=== PATIENT | male | born 1960 | race Caucasian/White ===

== ENCOUNTER 2017-08-31 10:56 | Inpatient (IN) | payer MEDICARE, MEDICAID ==
[~2017-08-31] VITALS: Ht 175.3 cm; Wt 86.1 kg
[2017-08-31] VITALS (12 sets, daily range): BP systolic 131–146; BP diastolic 78–93; PULSE 108–119; RESP 18–27; TEMP 97.6–98.1; O2SAT 88–100
[~2017-08-31 10:56] MED LIST: BACL10TA PO; D-AMPHETAMINE SALT PO; HYDR-3580 PO; OXYB5TAB8 PO; TERI14TA PO
[2017-08-31] MEDS ORDERED: [UNRECOGNIZED DRUG - REMARK] IV (11:13)
[2017-08-31] MEDS ORDERED: ADDE20 PO (11:13)
[2017-08-31] MEDS ORDERED: PRED10 PO (11:13)
[2017-08-31] MEDS ORDERED: SODIUM CHLORIDE 0.9% FLUSH 10 ML FLUSH IVF PRN (11:45)
--- NOTE | 2017-08-31 11:47 | PD ---
HPI Chief Complaint: Respiratory Symptoms Time Seen by Provider: 11:40 Travel History International Travel<30 days: No Contact w/Intl Traveler<30days: No Traveled to known affect area: No History of Present Illness HPI Patient presents with concerns of an episode of shortness of breath this morning while bending over to put on his socks. Lips and hands were observed to turn blue. Reports elevated blood pressure and tachycardia. Patient was placed on oxygen with resolution of his symptoms. Denies any chest pain urinary or bowel symptoms. Denies any radiation or diaphoresis. History of multiple sclerosis and hyperlipidemia. PFSH Past Medical History Autoimmune Disease: Yes (MS) Heart Rhythm Problems: No Cardiac Catheterization: No Cardiovascular Problems: No High Cholesterol: Yes Congestive Heart Failure: No Diabetes: No Diminished Hearing: No Genitourinary: No Headaches: Yes Kidney Stones: Yes Musculoskeletal: Yes (complication from ms) Neurologic: Yes (MS) Psychiatric: No Reproductive: No Respiratory: No Immunizations Current: Yes Tetanus Vaccination: > 5 Years Influenza Vaccination: Yes Past Surgical History Surgical History: No Previous Surgery Coronary Artery Bypass Graft: No Social History Alcohol Use: No Tobacco Use: No Substance Use: No Allergies-Medications (Allergen,Severity, Reaction): Coded Allergies: No Known Allergies (Verified Allergy, Unknown, 08/31/17) Reported Meds & Prescriptions Reported Meds & Active Scripts Active Reported [Immunosurpression] 1 Unit IV 2 X YEARLY Prednisone 10 Mg Tab 15 Mg PO DAILY Baclofen 10 Mg Tab 10 Mg PO BID Hydrocodone-Acetaminophen 7.5-325 mg Tab 1 Tab PO Q6H PRN Ditropan (Oxybutynin Chloride) 5 Mg Tab 5 Mg PO Q12HR Physical Exam Narrative GENERAL: Well-nourished, well-developed patient. SKIN: Focused skin assessment warm/dry. HEAD: Normocephalic. EYES: No scleral icterus. No injection or drainage. NECK: Supple, trachea midline. No JVD or lymphadenopathy. CARDIOVASCULAR: Regular rate and rhythm without murmurs, gallops, or rubs. Tachycardic rate 112 RESPIRATORY: Decreased breath sounds right lower lobe. No accessory muscle use. GASTROINTESTINAL: Abdomen soft, non-tender, nondistended. MUSCULOSKELETAL: No cyanosis, or edema. BACK: Nontender without obvious deformity. No CVA tenderness. Data Data Last Documented VS Vital Signs Date Time Temp Pulse Resp B/P (MAP) Pulse Ox O2 Delivery O2 Flow Rate FiO2 08/31/17 12:40 112 18 131/89 (103) 96 Nasal Cannula 3.00 08/31/17 11:03 97.6 Orders Orders Complete Blood Count With Diff (08/31/17 11:40) Comprehensive Metabolic Panel (08/31/17 11:40) B-Type Natriuretic Peptide (08/31/17 11:40) D-Dimer (08/31/17 11:40) Ckmb (Isoenzyme) Profile (08/31/17 11:40) Troponin I (08/31/17 11:40) Iv Access Insert/Monitor (08/31/17 11:40) Electrocardiogram (08/31/17 11:40) Ecg Monitoring (08/31/17 11:40) Oximetry (08/31/17 11:40) Oxygen Administration (08/31/17 11:40) Chest, Single Ap (08/31/17 11:40) Ct Pulmonary Angiogram (08/31/17 11:40) Sodium Chloride 0.9% Flush (Ns Flush) (08/31/17 11:45) Iohexol 350 Inj (Omnipaque 350 Inj) (08/31/17 12:40) Prothrombin Time / Inr (Pt) (08/31/17 13:10) Act Partial Throm Time (Ptt) (08/31/17 13:10) Heparin-D5w 25,000 U/250 Ml (Heparin-D5w (08/31/17 13:15) Act Partial Throm Time (Ptt) (08/31/17 13:11) Cbc No Diff, Includes Plts (08/31/17 13:11) Cbc No Diff, Includes Plts (09/03/17 06:00) Act Partial Throm Time (Ptt) (08/31/17 20:11) Occult Blood (Hemoccult) Stool (08/31/17 13:11) Ct Brain W/O Iv Contrast(Rout) (08/31/17 ) Echo 2d Limited (08/31/17 13:11) Us Leg Venous Doppler Bilat (08/31/17 ) Dextroamphet-Ampheta (Adderall) (08/31/17 21:00) Oxybutynin (Ditropan) (08/31/17 21:00) Prednisone (Deltasone) (09/01/17 09:00) Admit To Inpatient (08/31/17 ) Code Status (08/31/17 13:15) Vital Signs (Adult) YESIKA.Q1H (08/31/17 13:15) Activity Bed Rest (08/31/17 13:15) Elevate Head Of Bed (08/31/17 13:15) Neuro Checks . ORDERED (08/31/17 13:15) Intake + Output Q1H (08/31/17 13:15) Bedside Glucose YESIKA.BGM (08/31/17 13:15) Diet Npo (08/31/17 Lunch) Sodium Chlor 0.9% 1000 Ml Inj (Ns 1000 M (08/31/17 13:15) Sodium Chloride 0.9% Flush (Ns Flush) (08/31/17 13:15) Sodium Chloride 0.9% Flush (Ns Flush) (08/31/17 21:00) Acetaminophen (Tylenol) (08/31/17 13:15) Acetamin-Hydrocod 325-5 Mg ([place] 5-325 (08/31/17 13:15) Morphine Inj (Morphine Inj) (08/31/17 13:15) Pantoprazole Inj (Protonix Inj) (09/01/17 09:00) Ondansetron Inj (Zofran Inj) (08/31/17 13:15) Albuterol-Ipratropium Neb (Duoneb Neb) (08/31/17 16:00) Albuterol Neb (Albuterol Neb) (08/31/17 13:15) Complete Blood Count With Diff (09/01/17 04:00) Comprehensive Metabolic Panel (09/01/17 04:00) Troponin I (08/31/17 18:00) Troponin I (09/01/17 00:00) Act Partial Throm Time (Ptt) (09/01/17 04:00) Prothrombin Time / Inr (Pt) (09/01/17 04:00) Magnesium (Mg) (09/01/17 04:00) Phosphorus (Po4) (09/01/17 04:00) Lactic Acid (09/01/17 04:00) Electrocardiogram (08/31/17 ) Pt Request For Service (08/31/17 13:15) Refractory Manager / Telemetry YESIKA.Q8H (08/31/17 13:15) ^ Initiate Protocol (08/31/17 13:15) Instruction (08/31/17 13:15) [facility] [place] (08/31/17 13:15) Chlorhexidine 2% Cloth (Chlorhexidine 2% (09/01/17 04:00) Chlorhexidine 2% Cloth (Chlorhexidine 2% (08/31/17 13:15) Mrsa Pcr Surveillance (08/31/17 13:15) Docusate Sodium-Senna (Cassandra-Colace) (08/31/17 21:00) Magnesium Hydroxide Liq (Milk Of Magnesi (08/31/17 13:15) Sennosides (Senokot) (08/31/17 13:15) Bisacodyl Supp (Dulcolax Supp) (08/31/17 13:15) Lactulose Liq (Lactulose Liq) (08/31/17 13:15) Inpatient Certification (08/31/17 ) Admit Order (Ed Use Only) (08/31/17 ) Vital Signs (Adult) Q4H (08/31/17 13:17) Labs Laboratory Tests Test 08/31/17 12:00 White Blood Count 11.3 TH/MM3 Red Blood Count 4.81 MIL/MM3 Hemoglobin 14.6 GM/DL Hematocrit 43.7 % Mean Corpuscular Volume 90.8 FL Mean Corpuscular Hemoglobin 30.3 PG Mean Corpuscular Hemoglobin Concent 33.3 % Red Cell Distribution Width 13.1 % Platelet Count 222 TH/MM3 Mean Platelet Volume 9.1 FL Neutrophils (%) (Auto) 82.1 % Lymphocytes (%) (Auto) 10.0 % Monocytes (%) (Auto) 6.4 % Eosinophils (%) (Auto) 1.1 % Basophils (%) (Auto) 0.4 % Neutrophils # (Auto) 9.4 TH/MM3 Lymphocytes # (Auto) 1.1 TH/MM3 Monocytes # (Auto) 0.7 TH/MM3 Eosinophils # (Auto) 0.1 TH/MM3 Basophils # (Auto) 0.0 TH/MM3 CBC Comment DIFF FINAL Differential Comment D-Dimer Quantitative (PE/DVT) 5.81 MG/L FEU Blood Urea Nitrogen 17 MG/DL Creatinine 1.10 MG/DL Random Glucose 90 MG/DL Total Protein 6.9 GM/DL Albumin 3.7 GM/DL Calcium Level 9.0 MG/DL Alkaline Phosphatase 59 U/L Aspartate Amino Transf (AST/SGOT) 20 U/L Alanine Aminotransferase (ALT/SGPT) 45 U/L Total Bilirubin 0.5 MG/DL Sodium Level 142 MEQ/L Potassium Level 3.8 MEQ/L Chloride Level 105 MEQ/L Carbon Dioxide Level 27.5 MEQ/L Anion Gap 10 MEQ/L Estimat Glomerular Filtration Rate 69 ML/MIN Total Creatine Kinase 41 U/L Troponin I 0.76 NG/ML B-Type Natriuretic Peptide 9 PG/ML MDM Medical Decision Making Medical Screen Exam Complete: Yes Emergency Medical Condition: Yes Differential Diagnosis ACS, pulmonary embolism, pneumonia, aspiration Narrative Course Assessment and plan discussed with patient and and friend at bedside. EKG reveals a sinus tachycardia. Cardiac enzymes elevated. Last 72 hours Impressions Chest X-Ray 08/31/17 1140 Signed Impressions: Service Date/Time: Thursday, August 31, 2017 12:45 - CONCLUSION: Mild interstitial prominence identified. Raghavendra Hughes MD CT Angiography 08/31/17 1140 Signed Impressions: Service Date/Time: Thursday, August 31, 2017 12:23 - CONCLUSION: Large bilateral pulmonary emboli including saddle embolus. Vance Nunez MD Physician Communication Physician Communication Spoke with Dr. Reynolds who is in agreement will transport to the [facility] for admission to ICU. No intervention at this time. Diagnosis Primary Impression: Pulmonary embolus Qualified Codes: I26.92 - Saddle embolus of pulmonary artery without acute cor pulmonale Admitting Information Admitting Physician Requests: Admit Adama Angel MD Aug 31, 2017 11:47
[2017-08-31 12:13] LABS: AUTOMATED NEUTROPHIL # 9.4 TH/MM3 (1.8-7.7); BASOPHIL % 0.4 % (0.0-2.0); EOSINOPHIL # 0.1 TH/MM3 (0-0.4); EOSINOPHIL % 1.1 % (0.0-4.0); HEMATOCRIT 43.7 % (39.0-51.0); HEMO FLAGS DIFF FINAL; LYMPHOCYTE # 1.1 TH/MM3 (1.0-4.8); MEAN CELL VOLUME 90.8 FL (80.0-100.0); MEAN CORPUSCULAR HEMOGLOBIN 30.3 PG (27.0-34.0); MEAN CORPUSCULAR HGB CONC 33.3 % (32.0-36.0); MONO % 6.4 % (0.0-8.0); NEUT % 82.1 % (16.0-70.0); PLATELET COUNT 222 TH/MM3 (150-450); RED BLOOD COUNT 4.81 MIL/MM3 (4.50-5.90); RED CELL DISTRIBUTION WIDTH 13.1 % (11.6-17.2); WHITE BLOOD COUNT 11.3 TH/MM3 (4.0-11.0)
[2017-08-31 12:20] LABS: CHLORIDE 105 MEQ/L (98-107); POTASSIUM 3.8 MEQ/L (3.5-5.1); SODIUM (NA) 142 MEQ/L (136-145)
[2017-08-31 12:23] LABS: ANION GAP 10 MEQ/L (5-15); BICARBONATE 27.5 MEQ/L (21.0-32.0); BLOOD UREA NITROGEN 17 MG/DL (7-18)
[2017-08-31 12:27] LABS: ALT (GPT) 45 U/L (12-78); AST (GOT) 20 U/L (15-37); GLOMERULAR FILTRATION RATE 69 ML/MIN (>89)
[2017-08-31 12:28] LABS: TOTAL BILIRUBIN ADULT 0.5 MG/DL (0.2-1.0)
[2017-08-31 12:29] LABS: ALKALINE PHOSPHATASE 59 U/L (45-117)
[2017-08-31 12:32] LABS: CREATINE KINASE 41 U/L (39-308)
[2017-08-31] MEDS ORDERED: IOHEXOL 350 MG/ML 10 ML VIAL (for RAD DIAG) IVCONTRAST ONE (12:40)
--- NOTE | 2017-08-31 13:01 | RADRPT ---
EXAM DATE/TIME: 08/31/2017 12:23 [facility] COMPARISON: No previous studies available for comparison. INDICATIONS : Sudden onset of shortness of breath. IV CONTRAST: 100 cc Omnipaque 350 (iohexol) IV RADIATION DOSE: 18.54 CTDIvol (mGy) MEDICAL HISTORY : Multple sclerosis. Hypercholesterolemia. Renal calculi.Hyperlipedema SURGICAL HISTORY : None. ENCOUNTER: Initial ACUITY: 1 day PAIN SCALE: 0/10 LOCATION: Bilateral chest TECHNIQUE: Volumetric scanning of the chest was performed using a pulmonary embolism protocol MIP images were re constructed. Using automated exposure control and adjustment of the mA and/or kV according to patien t size, radiation dose was kept as low as reasonably achievable to obtain optimal diagnostic quality images. DICOM format image data is available electronically for review and comparison. Follow-up recommendations for detected pulmonary nodules are based at a minimum on nodule size and pa tient risk factors according to Fleischner Society Guidelines. FINDINGS: PULMONARY ARTERIES: There is a large filling defect extending across the pulmonary artery bifurcation into the right and left pulmonary arteries. Large filling defects extend into all of the right lower lobe branches and m ultiple left lower lobe branches as well as multiple bilateral upper lobe branches. LUNGS: Groundglass opacity likely resulting atelectasis in the lower lungs bilaterally. PLEURAE: There is no pleural thickening or pleural effusion. MEDIASTINUM: There is good visualization of the great vessels of the middle mediastinum. No evidence of mediastin al or hilar adenopathy/mass. MUSCULOSKELETAL: Within normal limits for patient age. MISCELLANEOUS: The visualized upper abdominal organs demonstrate no acute abnormality. CONCLUSION: Large bilateral pulmonary emboli including saddle embolus. Vance Nunez MD on August 31, 2017 at 12:54 Board Certified Radiologist. This report was verified electronically.
--- NOTE | 2017-08-31 13:03 | RADRPT ---
EXAM DATE/TIME: 08/31/2017 12:45 [facility] COMPARISON: CHEST SINGLE AP, September 04, 2016, 1:34. INDICATIONS : Short of breath MEDICAL HISTORY : None. SURGICAL HISTORY : None. ENCOUNTER: Subsequent ACUITY: 1 day PAIN SCORE: 0/10 LOCATION: Bilateral chest FINDINGS: Mild interstitial prominence. Cardiomegaly. No effusions or consolidation. Osseous structures are int act. CONCLUSION: Mild interstitial prominence identified. Raghavendra Hughes MD on August 31, 2017 at 13:01 Board Certified Radiologist. This report was verified electronically.
[2017-08-31] MEDS ORDERED: LACTULOSE SYRUP 20 GM/30 ML CUP PO PRN (13:15)
[2017-08-31] MEDS ORDERED: ONDANSETRON HCL 4 MG/2 ML VIAL IV PUSH PRN (13:15)
[2017-08-31] MEDS ORDERED: RESP: ALBUTEROL 2.5 MG/3 ML NEB (PRN) INH (13:15)
[2017-08-31] MEDS ORDERED: MAGNESIUM HYDROXIDE SUSP 30 ML CUP PO PRN (13:15)
[2017-08-31] MEDS ORDERED: SODIUM CHLORIDE 0.9% FLUSH 10 ML FLUSH IV FLUSH PRN ×2 (13:15→15:30)
[2017-08-31] MEDS ORDERED: BISACODYL 10 MG SUPP RECTAL PRN (13:15)
[2017-08-31] MEDS ORDERED: ACETAMINOPHEN/HYDROcodone 325 MG/5 MG TAB PO PRN (13:15)
[2017-08-31] MEDS ORDERED: SENNOSIDES 8.6 MG TAB PO PRN (13:15)
[2017-08-31] MEDS ORDERED: CHLORHEXIDINE GLUCONATE 2 % 1 PACK (2 CLOTHS) TOP PRN (13:15)
[2017-08-31] MEDS ORDERED: MISCELLANEOUS NURSING INFORMATION XX SCH (13:15)
[2017-08-31] MEDS: SODIUM CHLOR 0.9% 1000 ML INJ 1,000 ML IV SCH ×2 (13:40→16:40)
[2017-08-31 14:14] LABS: APTT (PATIENT) 25.3 SEC (24.3-30.1); INTERNATIONAL NORMALIZED RATIO 0.9 RATIO; PROTHROMBIN TIME - PATIENT 10.4 SEC (9.8-11.6)
--- NOTE | 2017-08-31 15:13 | PD.PROCEDR ---
Central Line Procedure REASON FOR PROCEDURE Central venous access PROCEDURE PERFORMED Central line placement: Right internal jugular vein CONSENT Informed consent for procedure was obtained. The risks and benefits of the procedure were discussed to include but limited to bleeding, clot formation, infection, and even . ANESTHESIA Local injection of 1% Lidocaine DESCRIPTION OF THE PROCEDURE The patient was placed in supine, mild Trendelenburg position. The area was exposed and cleansed with ChloraPrep, times two. Large sterile drape was used to cover the patient, with the site exposed, under sterile conditions including cap, face mask, sterile gown, and sterile gloves. On single attempt, the introducer needle was inserted with negative pressure in syringe and venous flash was obtained. The guide wire was then advanced without any restriction and the needle was removed. The dilator was used without any complications. Using Seldinger technique the triple-lumen antibiotic coated catheter was advanced over the guide wire to a depth of 15 centimeters. The guide wire was removed. All ports were aspirated with dark venous blood return and flushed easily with sterile saline. All ports were capped. Antibiotic disc was placed around central line at puncture site. The central line was secured to the skin with two interrupted 2.0 silk sutures. The area was bandaged with sterile see- through central line bandage. RADIOLOGICAL DATA Ultrasound guidance was used to locate right internal jugular vein. Doppler/ color flow was used to confirm venous flow. COMPLICATIONS: No apparent complications ESTIMATED BLOOD LOSS: Less than 1 cc. Steven Reynolds MD Aug 31, 2017 15:13
--- NOTE | 2017-08-31 15:14 | HHI.HP ---
[facility] Service Critical Care Medicine Primary Care Physician Non-Staff Admission Diagnosis Pulmonary Embolus Diagnosis: (1) Elevated troponin Diagnosis: Principal (2) Leukocytosis Diagnosis: Secondary (3) Chronic narcotic use Diagnosis: Secondary (4) Bladder spasm Diagnosis: Secondary (5) On prednisone therapy (6) Dyslipidemia Diagnosis: Principal (7) Multiple sclerosis Diagnosis: Principal (8) Pulmonary embolus Diagnosis: Principal (9) Chest pain Diagnosis: Secondary (10) ADHD Diagnosis: Secondary Chief Complaint: Shortness of breath Travel History International Travel<30 Days: No Contact w/Intl Traveler <30 Da: No Traveled to Known Affected Are: No History of Present Illness This is a 57-year-old male. Date of admission 08/31/2017. Past medical history includes MS, chronic prednisone use, bladder incontinence and chronic narcotic use.Mr. Thibodeaux presents with the [facility] episode of shortness of breath this morning while bending over to put on his socks. He is noted to have peripheral edema including his oromucosa and hands. Reports elevated blood pressure and tachycardia. Patient was placed on oxygen by neighbor with resolution of his symptoms. Denies any chest pain urinary or bowel symptoms. Denies any radiation or diaphoresis. Patient had a CT pulmonary angiogram at [place] revealed thrombus across the pulmonary bifurcation involving the bilateral upper and lower lobes of the lung. Heparin drip as well as written to be initiated at [place] but not started. Head CT was not done. Patient was transported to [facility] for further evaluation treatment. A central line has been placed and we'll start on alteplase at 2 mg an hour 6 hours per protocol. Started by heparin drip at 1 hour post conclusion Review of Systems Constitutional: COMPLAINS OF: Fatigue, DENIES: Fever, Weight gain, Weight loss Endocrine: DENIES: Polydipsia, Polyuria Eyes: DENIES: Blurred vision Ears, nose, mouth, throat: DENIES: Tinnitus Respiratory: COMPLAINS OF: Shortness of breath, DENIES: Apneas, Cough Cardiovascular: DENIES: Chest pain Gastrointestinal: DENIES: Abdominal pain Genitourinary: DENIES: Urgency Musculoskeletal: DENIES: Joint pain Integumentary: DENIES: Abnormal pigmentation Hematologic/lymphatic: DENIES: Bruising Immunologic/allergic: DENIES: Eczema Neurologic: DENIES: Abnormal gait Psychiatric: DENIES: Anxiety, Confusion Past Family Social History Allergies: Coded Allergies: No Known Allergies (Verified Allergy, Unknown, 08/31/17) Past Medical History MS Dyslipidemia Bladder overflow Chronic prednisone use Chronic narcotic use Past Surgical History Patient has had no surgeries Reported Medications [Immunosurpression] 1 Unit IV 2 X YEARLY Prednisone 10 Mg Tab 15 Mg PO DAILY Baclofen 10 Mg Tab 10 Mg PO BID Hydrocodone-Acetaminophen 7.5-325 mg Tab 1 Tab PO Q6H PRN Ditropan (Oxybutynin Chloride) 5 Mg Tab 5 Mg PO Q12HR Active Ordered Medications Prednisone 15 mill grams by mouth daily Baclofen 10 mg by mouth twice a day Oxybutynin 5 mill grams by mouth twice a day [place] 7.5/325 1 tablet every 4 hours. Pain Family History Patient is adopted Social History Denies any tobacco alcohol or IV drug use Physical Exam Vital Signs Vital Signs Date Time Temp Pulse Resp B/P (MAP) Pulse Ox O2 Delivery O2 Flow Rate FiO2 08/31/17 13:51 08/31/17 13:45 112 18 143/93 (110) 97 Nasal Cannula 3.00 08/31/17 12:40 112 18 131/89 (103) 96 Nasal Cannula 3.00 08/31/17 11:45 95 Nasal Cannula 3.00 08/31/17 11:45 95 Nasal Cannula 3.00 08/31/17 11:06 (108) 08/31/17 11:03 97.6 119 18 140/92 (108) 88 Room Air 08/31/17 11:03 95 Nasal Cannula 3.00 Physical Exam GENERAL: This is a 57-year-old male, resting in bed on nasal cannula SKIN: Warm and dry. Well perfused HEAD: Atraumatic. Normocephalic. EYES: Pupils equal and round. No scleral icterus. No injection or drainage. ENT: No nasal bleeding or discharge. Mucous membranes pink and moist. NECK: Trachea midline. No JVD. CARDIOVASCULAR: Tachycardia, RR. S1, S2. No S4. Without murmur RESPIRATORY: Really no significant accessory muscle use. Essentially clear.. Breath sounds equal bilaterally. GASTROINTESTINAL: Abdomen soft, non-tender, nondistended. Active bowel sounds appreciated. MUSCULOSKELETAL: Extremities with trace bilateral lower extremity edema. No obvious deformities. NEUROLOGICAL: Awake and alert. No obvious cranial nerve deficits. Motor grossly within normal limits. Five out of 5 muscle strength in the arms and legs. Normal speech. Laboratory Laboratory Tests Test 08/31/17 12:00 White Blood Count 11.3 Red Blood Count 4.81 Hemoglobin 14.6 Hematocrit 43.7 Mean Corpuscular Volume 90.8 Mean Corpuscular Hemoglobin 30.3 Mean Corpuscular Hemoglobin Concent 33.3 Red Cell Distribution Width 13.1 Platelet Count 222 Mean Platelet Volume 9.1 Neutrophils (%) (Auto) 82.1 Lymphocytes (%) (Auto) 10.0 Monocytes (%) (Auto) 6.4 Eosinophils (%) (Auto) 1.1 Basophils (%) (Auto) 0.4 Neutrophils # (Auto) 9.4 Lymphocytes # (Auto) 1.1 Monocytes # (Auto) 0.7 Eosinophils # (Auto) 0.1 Basophils # (Auto) 0.0 CBC Comment DIFF FINAL Differential Comment Prothrombin Time 10.4 Prothromb Time International Ratio 0.9 Activated Partial Thromboplast Time 25.3 D-Dimer Quantitative (PE/DVT) 5.81 Blood Urea Nitrogen 17 Creatinine 1.10 Random Glucose 90 Total Protein 6.9 Albumin 3.7 Calcium Level 9.0 Alkaline Phosphatase 59 Aspartate Amino Transf (AST/SGOT) 20 Alanine Aminotransferase (ALT/SGPT) 45 Total Bilirubin 0.5 Sodium Level 142 Potassium Level 3.8 Chloride Level 105 Carbon Dioxide Level 27.5 Anion Gap 10 Estimat Glomerular Filtration Rate 69 Total Creatine Kinase 41 Troponin I 0.76 B-Type Natriuretic Peptide 9 Result Diagram: 08/31/17 1200 08/31/17 1200 Imaging Last Impressions Chest X-Ray 08/31/17 1140 Signed Impressions: Service Date/Time: Thursday, August 31, 2017 12:45 - CONCLUSION: Mild interstitial prominence identified. Raghavendra Hughes MD CT Angiography 08/31/17 1140 Signed Impressions: Service Date/Time: Thursday, August 31, 2017 12:23 - CONCLUSION: Large bilateral pulmonary emboli including saddle embolus. Vance Nunez MD Caprini VTE Risk Assessment Caprini VTE Risk Assessment: Mod/High Risk (score >= 2) VTE Pharm Contraindication: Caprini Risk Assessment Model Point Value = 1 Point Value = 2 Point Value = 3 Point Value = 5 Age 41-60 Minor surgery BMI > 25 kg/m2 Swollen legs Varicose veins or History of unexplained or recurrent spontaneous Oral contraceptives or hormone replacement Sepsis (< 1 month) Serious lung disease, including pneumonia (< 1 month) Abnormal pulmonary function Acute myocardial infarction Congestive heart failure (< 1 month) History of inflammatory bowel disease Medical patient at bed rest Age 61-74 Arthroscopic surgery Major open surgery (> 45 min) Laparoscopic surgery (> 45 min) Malignancy Confined to bed (> 72 hours) Immobilizing plaster cast Central venous access Age >= 75 History of VTE Family history of VTE Factor V Leiden Prothrombin [id number] Lupus anticoagulant Anticardiolipin antibodies Elevated serum homocysteine Heparin-induced thrombocytopenia Other congenital or acquired thrombophilia Stroke (< 1 month) Elective arthroplasty Hip, pelvis, or leg fracture Acute spinal cord injury (< 1 month) Prophylaxis Regimen Total Risk Factor Score Risk Level Prophylaxis Regimen 0-1 Low Early ambulation 2 Moderate Order ONE of the following: *Sequential Compression Device (SCD) *Heparin 5000 units SQ BID 3-4 Higher Order ONE of the following medications: *Heparin 5000 units SQ TID *Enoxaparin/Lovenox 40 mg SQ daily (WT < 150 kg, CrCl > 30 mL/min) *Enoxaparin/Lovenox 30 mg SQ daily (WT < 150 kg, CrCl > 10-29 mL/min) *Enoxaparin/Lovenox 30 mg SQ BID (WT < 150 kg, CrCl > 30 mL/min) AND/OR *Sequential Compression Device (SCD) 5 or more Highest Order ONE of the following medications: *Heparin 5000 units SQ TID (Preferred with Epidurals) *Enoxaparin/Lovenox 40 mg SQ daily (WT < 150 kg, CrCl > 30 mL/min) *Enoxaparin/Lovenox 30 mg SQ daily (WT < 150 kg, CrCl > 10-29 mL/min) *Enoxaparin/Lovenox 30 mg SQ BID (WT < 150 kg, CrCl > 30 mL/min) AND *Sequential Compression Device (SCD) Assessment and Plan Assessment and Plan Neuro/Psych: Chronic narcotic use MS ADHD Continue baclofen 10 mg by mouth twice a day/muscle relaxants Currently on [place] 5/325 one tablet every 4 hours. Pain 1-5. Morphine sulfate 2 mg IV every 2 hours. Pain 6-10 Patient is on [place] 7.5/325 one tablet every 4 hours when necessary pain at home Continue prednisone 15 mg by mouth daily Immunosuppressant unknown type on hold Continue Adderall 20 mg BID CV: Sinus tachycardia Elevated troponin - likely secondary to pulmonary embolism strain Currently normal saline at 84 cc an hour Currently not requiring vasopressors and/or antihypertensives 2-D echocardiogram ordered Echo troponins every 6 hours 3 total Resp: Acute massive pulmonary embolism CT pulmonary angiogram revealed large thrombus across the pulmonary bifurcation involving right main lung, bilateral right upper middle lobe and left upper and lower lobes Nasal cannula to maintain saturations greater than equal to 90% Incentive spirometry while awake Alteplase infusion see below at 10 mg an hour 6 hours with heparin drip at 500 units an hour. Initiated heparin drip for PE protocol 1 hour post alteplase infusion GI: Patient is currently nothing by mouth Pantoprazole for GI prophylaxis Docusate sodium/senna for bowel regimen : Bladder spasm Continue oxybutynin 5 mg every 12 hours No indication for Kim catheter Endo: Chronic prednisone use Sliding-scale insulin with Accu-Cheks to maintain euglycemia if indicated Renal: Creatinine currently within normal limits Monitor urine output Accurate I's and O's Heme: Leukocytosis Renal Doppler ultrasound bilateral lower extremities. Patient is relatively immobile to MS ID: Monitor for infection MSK: PT evaluate and treat FEN: Replace electrolytes as clinically indicated Access - Right IJ CVL Prophylaxis - GI - pantoprazole - DVT - SCDs/currently on alteplase/heparin drip Critical Care: The total critical care time was 35 minutes. Time to perform other separately billable procedures was not included in the critical care time. Code Status Full code Discussed Condition With Patient. Dr. Boaz Ortega, IR. Dr. Angel. The ED physician. Care plan discussed and all questions answered. Problem Qualifiers (1) Leukocytosis: Qualified Codes: D72.829 - Elevated white blood cell count, unspecified (2) Pulmonary embolus: Qualified Codes: I26.92 - Saddle embolus of pulmonary artery without acute cor pulmonale (3) Chest pain: Qualified Codes: R07.9 - Chest pain, unspecified (4) ADHD: Qualified Codes: F90.9 - Attention-deficit hyperactivity disorder, unspecified type Steven Reynolds MD Aug 31, 2017 15:13
[2017-08-31] MEDS: RESP: ALBUTEROL 2.5 MG/IPRATROPIUM 0.5 MG NEB (SCH) INH ×2 (15:48→21:29)
[2017-08-31] MEDS: Intra-Venous SODIUM CHLORIDE 0.9% IV LINE 1000 ML IV SCH (16:00)
[2017-08-31] MEDS ORDERED: Intra-Venous HEPARIN 1,000 UNITS/500 ML NS (PRN) IV ×2 (16:00)
--- NOTE | 2017-08-31 16:04 | EKG ---
Date Performed: 08/31/2017 Time Performed: 11:48:57 PTAGE: 57 years EKG: SINUS TACHYCARDIA NONSPECIFIC ST & T-WAVE ABNORMALITY Compared to prior tracing no signific ant change ABNORMAL RHYTHM ECG PREVIOUS TRACING : 09/04/2016 08.31 DOCTOR: Elliot Chavis Interpretating Date/Time 08/31/2017 16:03:17
--- NOTE | 2017-08-31 16:11 | RADRPT ---
EXAM DATE/TIME: 08/31/2017 15:50 [facility] COMPARISON: CHEST SINGLE AP, August 31, 2017, 12:45. INDICATIONS : Post central line placement. MEDICAL HISTORY : Multple sclerosis. Hypercholesterolemia. Renal calculi.Hyperlipedema SURGICAL HISTORY : None. ENCOUNTER: Subsequent ACUITY: 1 day PAIN SCORE: Non-responsive. LOCATION: Bilateral chest FINDINGS: Right IJ central venous catheter has been placed, tip in the superior vena cava. There is no pneumoth orax. No infiltrate, effusion or pneumothorax. Heart size stable, within normal limits. CONCLUSION: New right internal jugular central venous catheter with tip in the superior vena cava. No acute cardi opulmonary disease or acute complication. Lamberto Martinez MD on August 31, 2017 at 16:08 Board Certified Radiologist. This report was verified electronically.
--- NOTE | 2017-08-31 16:17 | RADRPT ---
EXAM DATE/TIME: 08/31/2017 15:47 [facility] COMPARISON: No previous studies available for comparison. INDICATIONS : Cephalgia; pre TPA for pulmonary emboli. RADIATION DOSE: 36.35 CTDIvol (mGy) MEDICAL HISTORY : Multple sclerosis. SURGICAL HISTORY : None. ENCOUNTER: Initial ACUITY: 1 day PAIN SCALE: 3/10 LOCATION: Bilateral chest TECHNIQUE: Multiple contiguous axial images were obtained of the head. Using automated exposure control and adj ustment of the mA and/or kV according to patient size, radiation dose was kept as low as reasonably a chievable to obtain optimal diagnostic quality images. DICOM format image data is available electro nically for review and comparison. FINDINGS: CEREBRUM: The ventricles are normal for age. No evidence of midline shift, mass lesion, hemorrhage or acute in farction. No extra-axial fluid collections are seen. POSTERIOR FOSSA: The cerebellum and brainstem are intact. The 4th ventricle is midline. The cerebellopontine angle i s unremarkable. EXTRACRANIAL: The visualized portion of the orbits is intact. SKULL: The calvaria is intact. No evidence of skull fracture. CONCLUSION: No acute disease. Raghavendra Hughes MD on August 31, 2017 at 16:15 Board Certified Radiologist. This report was verified electronically.
[2017-08-31 16:20] LABS: AUTOMATED NEUTROPHIL # 9.9 TH/MM3 (1.8-7.7); BASOPHIL # 0.1 TH/MM3 (0-0.2); BASOPHIL % 0.5 % (0.0-2.0); EOSINOPHIL # 0.2 TH/MM3 (0-0.4); EOSINOPHIL % 1.3 % (0.0-4.0); HEMATOCRIT 41.5 % (39.0-51.0); HEMO FLAGS DIFF FINAL; LYMPH % 9.9 % (9.0-44.0); LYMPHOCYTE # 1.2 TH/MM3 (1.0-4.8); MEAN CELL VOLUME 92.2 FL (80.0-100.0); MEAN CORPUSCULAR HEMOGLOBIN 30.7 PG (27.0-34.0); MEAN CORPUSCULAR HGB CONC 33.3 % (32.0-36.0); MONO % 6.8 % (0.0-8.0); NEUT % 81.5 % (16.0-70.0); PLATELET COUNT 225 TH/MM3 (150-450); RED CELL DISTRIBUTION WIDTH 13.9 % (11.6-17.2); WHITE BLOOD COUNT 12.2 TH/MM3 (4.0-11.0)
[2017-08-31] MEDS ORDERED: LABETALOL HCL 100 MG/20 ML VIAL IV PUSH PRN (16:30)
[2017-08-31 16:32] LABS: APTT (PATIENT) 25.1 SEC (24.3-30.1)
[2017-08-31] MEDS: Intra-Venous ALTEPLASE 10 MG/500 ML NS IV PRN ×4 (16:36→22:20)
[2017-08-31] MEDS: HEPARIN-D5W 25,000 U/250 ML 250 ML IV SCH (16:50)
--- NOTE | 2017-08-31 17:10 | RADRPT ---
EXAM DATE/TIME: 08/31/2017 16:37 [facility] COMPARISON: No previous studies available for comparison. INDICATIONS : Pulmonary embolism. MEDICAL HISTORY : Hypercholesterolemia. Renal calculi. Multiple sclerosis. Hyperlipidemia. SURGICAL HISTORY : None. ENCOUNTER: Initial ACUITY: 1 day PAIN SCORE: 2/10 LOCATION: Bilateral legs. TECHNIQUE: Venous ultrasound of the left and right leg was performed from the inguinal ligament to the proximal calf. Real-time, color Doppler and spectral tracing, compression and augmentation techniques were us ed. FINDINGS: RIGHT LEG: There is normal compressibility of the deep venous system from the inguinal region to the proximal ca lf. No echogenic clot is seen in the lumen of the common femoral, femoral, popliteal, and posterior tibial veins. There is a normal response of the venous system to proximal and distal augmentation an d respiration. LEFT LEG: There is normal compressibility of the deep venous system from the inguinal region to the proximal ca lf. No echogenic clot is seen in the lumen of the common femoral, femoral, popliteal, and posterior tibial veins. There is a normal response of the venous system to proximal and distal augmentation an d respiration. CONCLUSION: No venous thrombosis of either lower extremity. Lamberto Martinez MD on August 31, 2017 at 17:09 Board Certified Radiologist. This report was verified electronically.
[2017-08-31] MEDS: MORPHINE SULFATE 4 MG/ML INJ IV PUSH PRN (19:34)
[2017-08-31] MEDS: SODIUM CHLORIDE 0.9% FLUSH 10 ML FLUSH IV FLUSH SCH (20:30)
[2017-08-31] MEDS: BACLOFEN 10 MG TAB PO SCH (20:30)
[2017-08-31] MEDS: OXYBUTYNIN CHLORIDE 5 MG TAB PO SCH (20:30)
[2017-08-31] MEDS: DEXTROAMPHETAMINE/AMPHETAMINE 20 MG TAB PO SCH (20:30)
[2017-08-31] MEDS: DOCUSATE SODIUM 50 MG/SENNA 8.6 MG TAB PO SCH (20:31)
[2017-08-31 21:00] LABS: AUTOMATED NEUTROPHIL # 10.5 TH/MM3 (1.8-7.7); BASOPHIL # 0.1 TH/MM3 (0-0.2); BASOPHIL % 0.5 % (0.0-2.0); EOSINOPHIL # 0.2 TH/MM3 (0-0.4); EOSINOPHIL % 1.2 % (0.0-4.0); HEMATOCRIT 41.4 % (39.0-51.0); HEMO FLAGS DIFF FINAL; LYMPH % 9.7 % (9.0-44.0); LYMPHOCYTE # 1.2 TH/MM3 (1.0-4.8); MEAN CELL VOLUME 92.6 FL (80.0-100.0); MEAN CORPUSCULAR HEMOGLOBIN 30.4 PG (27.0-34.0); MEAN CORPUSCULAR HGB CONC 32.8 % (32.0-36.0); MONO % 6.5 % (0.0-8.0); NEUT % 82.1 % (16.0-70.0); PLATELET COUNT 216 TH/MM3 (150-450); RED BLOOD COUNT 4.47 MIL/MM3 (4.50-5.90); RED CELL DISTRIBUTION WIDTH 13.8 % (11.6-17.2); WHITE BLOOD COUNT 12.8 TH/MM3 (4.0-11.0)
[2017-08-31 21:12] LABS: APTT (PATIENT) 26.8 SEC (24.3-30.1)
[2017-09-01] VITALS (20 sets, daily range): BP systolic 125–149; BP diastolic 68–93; PULSE 101–109; RESP 12–27; TEMP 98–98.7; O2SAT 96–99
[2017-09-01] MEDS: MORPHINE SULFATE 4 MG/ML INJ IV PUSH PRN ×2 (00:25→21:13)
[2017-09-01] MEDS: HEPARIN-D5W 25,000 U/250 ML 250 ML IV PRN ×2 (00:28→16:30)
[2017-09-01] MEDS: SODIUM CHLOR 0.9% 1000 ML INJ 1,000 ML IV SCH ×2 (03:30→15:45)
[2017-09-01] MEDS: CHLORHEXIDINE GLUCONATE 2 % 1 PACK (2 CLOTHS) TOP SCH (04:00)
[2017-09-01 04:16] LABS: APTT (PATIENT) 52.6 SEC (24.3-30.1)
[2017-09-01 04:20] LABS: AUTOMATED NEUTROPHIL # 9.7 TH/MM3 (1.8-7.7); BASOPHIL # 0.1 TH/MM3 (0-0.2); BASOPHIL % 0.4 % (0.0-2.0); EOSINOPHIL # 0.2 TH/MM3 (0-0.4); EOSINOPHIL % 1.8 % (0.0-4.0); HEMATOCRIT 41.2 % (39.0-51.0); HEMO FLAGS DIFF FINAL; LYMPH % 10.3 % (9.0-44.0); LYMPHOCYTE # 1.3 TH/MM3 (1.0-4.8); MEAN CELL VOLUME 92.3 FL (80.0-100.0); MEAN CORPUSCULAR HEMOGLOBIN 30.9 PG (27.0-34.0); MEAN CORPUSCULAR HGB CONC 33.5 % (32.0-36.0); MONO % 7.5 % (0.0-8.0); PLATELET COUNT 216 TH/MM3 (150-450); RED BLOOD COUNT 4.46 MIL/MM3 (4.50-5.90); WHITE BLOOD COUNT 12.1 TH/MM3 (4.0-11.0)
[2017-09-01] MEDS: RESP: ALBUTEROL 2.5 MG/IPRATROPIUM 0.5 MG NEB (SCH) INH ×4 (04:43→20:25)
[2017-09-01 05:35] LABS: APTT (PATIENT) 61.1 SEC (24.3-30.1)
[2017-09-01 05:42] LABS: ALT (GPT) 39 U/L (12-78); ANION GAP 9 MEQ/L (5-15); AST (GOT) 18 U/L (15-37); BICARBONATE 26.6 MEQ/L (21.0-32.0); BLOOD UREA NITROGEN 12 MG/DL (7-18); CHLORIDE 106 MEQ/L (98-107); GLOMERULAR FILTRATION RATE 84 ML/MIN (>89); MAGNESIUM 2.2 MG/DL (1.5-2.5); POTASSIUM 3.9 MEQ/L (3.5-5.1); SODIUM (NA) 142 MEQ/L (136-145)
[2017-09-01 05:46] LABS: ALKALINE PHOSPHATASE 64 U/L (45-117); TOTAL BILIRUBIN ADULT 0.6 MG/DL (0.2-1.0)
[2017-09-01 05:58] LABS: AUTOMATED NEUTROPHIL # 8.1 TH/MM3 (1.8-7.7); BASOPHIL # 0.1 TH/MM3 (0-0.2); BASOPHIL % 0.7 % (0.0-2.0); EOSINOPHIL # 0.2 TH/MM3 (0-0.4); EOSINOPHIL % 1.9 % (0.0-4.0); HEMATOCRIT 39.6 % (39.0-51.0); HEMO FLAGS DIFF FINAL; LYMPH % 10.2 % (9.0-44.0); MEAN CELL VOLUME 92.7 FL (80.0-100.0); MEAN CORPUSCULAR HEMOGLOBIN 31.4 PG (27.0-34.0); MEAN CORPUSCULAR HGB CONC 33.8 % (32.0-36.0); MONO % 7.5 % (0.0-8.0); NEUT % 79.7 % (16.0-70.0); PLATELET COUNT 205 TH/MM3 (150-450); RED BLOOD COUNT 4.27 MIL/MM3 (4.50-5.90); WHITE BLOOD COUNT 10.2 TH/MM3 (4.0-11.0)
[2017-09-01] MEDS: SODIUM CHLORIDE 0.9% FLUSH 10 ML FLUSH IV FLUSH SCH ×3 (09:00→21:14)
[2017-09-01] MEDS: OXYBUTYNIN CHLORIDE 5 MG TAB PO SCH ×2 (09:57→21:12)
[2017-09-01] MEDS: BACLOFEN 10 MG TAB PO SCH ×2 (09:57→21:12)
[2017-09-01] MEDS: predniSONE 10 MG TAB PO SCH (09:58)
[2017-09-01] MEDS: PANTOPRAZOLE SODIUM 40 MG VIAL IV PUSH SCH (09:59)
[2017-09-01] MEDS ORDERED: ARTIFICIAL TEARS OPTH SOLN 15 ML BTL EACH EYE PRN (10:00)
[2017-09-01] MEDS: DOCUSATE SODIUM 50 MG/SENNA 8.6 MG TAB PO SCH ×2 (10:01→21:12)
--- NOTE | 2017-09-01 10:04 | HHI.CCPN ---
Subjective Remarks/Hospital Course This is a 57-year-old male. Date of admission 08/31/2017. Past medical history includes MS, chronic prednisone use, bladder incontinence and chronic narcotic use.Mr. Thibodeaux presents with the [facility] episode of shortness of breath this morning while bending over to put on his socks. He is noted to have peripheral edema including his oromucosa and hands. Reports elevated blood pressure and tachycardia. Patient was placed on oxygen by neighbor with resolution of his symptoms. Denies any chest pain urinary or bowel symptoms. Denies any radiation or diaphoresis. Patient had a CT pulmonary angiogram at [place] revealed thrombus across the pulmonary bifurcation involving the bilateral upper and lower lobes of the lung. Heparin drip as well as written to be initiated at [place] but not started. Head CT was not done. Patient was transported to [facility] for further evaluation treatment. A central line has been placed and we'll start on alteplase at 2 mg an hour 6 hours per protocol. Started by heparin drip at 1 hour post conclusion Subjective: 09/01: Afebrile. The patient continues on heparin infusion status post alteplase infusion. Denies chest pain. O2 requirements decreased to nasal cannula 2 L/minute. Echo performed this morning results pending. Objective Vital Signs Date Time Temp Pulse Resp B/P (MAP) Pulse Ox O2 Delivery O2 Flow Rate FiO2 09/01/17 07:45 98 Nasal Cannula 2.00 09/01/17 06:00 103 09/01/17 04:00 98.3 12 149/83 (105) Intake and Output 09/01/17 09/01/17 09/02/17 08:00 16:00 00:00 Intake Total 1239 ml Output Total 650 ml Balance 589 ml Result Diagram: 09/01/17 0440 09/01/17 0440 Imaging Last Impressions Chest X-Ray 08/31/17 1140 Signed Impressions: Service Date/Time: Thursday, August 31, 2017 12:45 - CONCLUSION: Mild interstitial prominence identified. Raghavendra Hughes MD CT Angiography 08/31/17 1140 Signed Impressions: Service Date/Time: Thursday, August 31, 2017 12:23 - CONCLUSION: Large bilateral pulmonary emboli including saddle embolus. Vance Nunez MD Objective Remarks GENERAL: This is a 57-year-old male, resting in bed on nasal cannula currently in no acute distress SKIN: Warm and dry. Well perfused HEAD: Atraumatic. Normocephalic. EYES: Pupils equal and round. No scleral icterus. No injection or drainage. ENT: No nasal bleeding or discharge. Mucous membranes pink and moist. NECK: Trachea midline. No JVD. CARDIOVASCULAR: Tachycardia, RR. S1, S2. No S4. Without murmur RESPIRATORY: No significant accessory muscle use.B/L breath sounds clear to auscultation. Breath sounds equal bilaterally. GASTROINTESTINAL: Abdomen soft, non-tender, nondistended. Normoactive bowel sounds . MUSCULOSKELETAL: Extremities with trace bilateral lower extremity edema. No obvious deformities. NEUROLOGICAL: Awake and alert. No obvious cranial nerve deficits. Motor grossly within normal limits. 5/5 muscle strength in the arms and legs. Normal speech. Vascular Central Line Catheter: Yes Date of Insertion: Aug 31, 2017 Line: Central Venous Catheter Side: Right Location: Internal, Jugular A/P Assessment and Plan Neuro/Psych: Chronic narcotic use MS ADHD Baclofen 10 mg by mouth BID /muscle relaxants, anti-spasmodic Currently on [place] 5/325 one tablet every 4 hours. Pain 1-5. Morphine sulfate 2 mg IV every 2 hours. Pain 6-10 Patient is on [place] 7.5/325 one tablet every 4 hours when necessary pain at home (on hold) Continue prednisone 15 mg by mouth daily Immunosuppressant unknown type on hold Continue Adderall 20 mg BID CV: Sinus tachycardia Elevated troponin - likely secondary to pulmonary embolism strain Currently normal saline at 84 cc/hour Currently not requiring vasopressors and/or antihypertensives 2-D echocardiogram performed, results pending Troponins 0.64->0.40 downtrending Resp: Acute massive pulmonary embolism CT pulmonary angiogram revealed large thrombus across the pulmonary bifurcation involving right main lung, bilateral right upper middle lobe and left upper and lower lobes Nasal cannula to maintain saturations greater than equal to 90% Incentive spirometry while awake 08/31 Alteplase infusion see below at 10 mg an hour 6 hours with heparin drip at 500 units an hour. Initiated heparin drip for PE protocol 1 hour post alteplase infusion GI: Begin heart healthy diet Pantoprazole for GI prophylaxis Docusate sodium/senna for bowel regimen : Bladder spasm Continue oxybutynin 5 mg every 12 hours No indication for Kim catheter, condom catheter use Endo: Chronic prednisone use Sliding-scale insulin with Accu-Cheks to maintain euglycemia if indicated Renal: Creatinine currently within normal limits Monitor urine output Accurate I's and O's Heme: Leukocytosis Renal Doppler ultrasound bilateral lower extremities. Patient is relatively immobile to MS ID: Monitor for infection MSK: PT evaluate and treat Strict bed rest FEN: Replace electrolytes as clinically indicated Access - 08/31 Right IJ CVL (day 2) Prophylaxis - GI - pantoprazole - DVT - SCDs/currently on alteplase/heparin drip Dispo: Discussed with daughter and TANK WAGON DRIVER at bedside. All questions answered. This patient remains critically ill with one or more organ systems which are or may become a threat to life. I have spent in excess of 37 minutes discontinuously in the care and management of this patient. This time is exclusive of procedures, and includes, but is not limited to, evaluation of the patient, review of the medical record, discussions with family, consultants, nursing staff, or respiratory therapy, and documentation in the medical record. Physician Serene Kellogg MD Sep 01, 2017 10:03
[2017-09-01] MEDS: DEXTROAMPHETAMINE/AMPHETAMINE 20 MG TAB PO SCH ×2 (10:07→21:12)
--- NOTE | 2017-09-01 11:26 | ECHRPT ---
Indication: EF CHF/ EVAL RV LARGE PE CONCLUSIONS Normal left ventricular size. Wall thickness is normal. The left ventricular systolic function is low normal with an estimated ejection fraction in the rang e of 50- 55%. The right ventricular size is normal. The right ventricular systoilc function may be mildly decreased (not well visualized) Mitral annular calcification is present. Trace mitral valve regurgitation. Aortic valve sclerosis is present. BP: / HR: Rhythm: MEASUREMENTS (Male / Female) Normal Values Technical Quality:Technically difficult study 2D ECHO LV Diastolic Diameter PLAX 3.9 cm 4.2 - 5.9 / 3.9 - 5.3 cm LV Systolic Diameter PLAX 3.4 cm IVS Diastolic Thickness 0.7 cm 0.6 - 1.0 / 0.6 - 0.9 cm LVPW Diastolic Thickness 0.6 cm 0.6 - 1.0 / 0.6 - 0.9 cm LV Relative Wall Thickness 0.3 RV Internal Dim ED PLAX 1.8 cm DOPPLER TR Peak Velocity 128.0 cm/s TR Peak Gradient 6.6 mmHg FINDINGS LEFT VENTRICLE Normal left ventricular size. Wall thickness is normal. The left ventricular systolic function is low normal with an estimated ejection fraction in the rang e of 50- 55%. RIGHT VENTRICLE The right ventricle was not well visualized. The right ventricular size is normal. The right ventricular systoilc function is mildly decreased. LEFT ATRIUM The left atrial size is normal. RIGHT ATRIUM The right atrial size is normal. ATRIAL SEPTUM Normal atrial septal thickness without atrial level shunting by limited color doppler interrogation. AORTA The aortic root and proximal ascending aorta are normal in size on limited imaging. MITRAL VALVE Mitral annular calcification is present. Trace mitral valve regurgitation. AORTIC VALVE Aortic valve sclerosis is present. TRICUSPID VALVE Structurally normal tricuspid valve. No tricuspid valve stenosis or regurgitation. PULMONARY VALVE The pulmonary valve is not well visualized. VESSELS The inferior vena cava is normal in size. PERICARDIUM No pericardial effusion. Mack Cardoso MD (Electronically Signed) Final Date:01 September 2017 11:25
[2017-09-01 12:03] LABS: AUTOMATED NEUTROPHIL # 8.3 TH/MM3 (1.8-7.7); BASOPHIL # 0.1 TH/MM3 (0-0.2); BASOPHIL % 0.6 % (0.0-2.0); EOSINOPHIL # 0.2 TH/MM3 (0-0.4); HEMATOCRIT 40.9 % (39.0-51.0); HEMO FLAGS DIFF FINAL; LYMPH % 9.9 % (9.0-44.0); MEAN CELL VOLUME 92.6 FL (80.0-100.0); MEAN CORPUSCULAR HEMOGLOBIN 30.9 PG (27.0-34.0); MEAN CORPUSCULAR HGB CONC 33.4 % (32.0-36.0); MONO % 7.1 % (0.0-8.0); NEUT % 80.4 % (16.0-70.0); PLATELET COUNT 210 TH/MM3 (150-450); RED BLOOD COUNT 4.42 MIL/MM3 (4.50-5.90); RED CELL DISTRIBUTION WIDTH 13.9 % (11.6-17.2); WHITE BLOOD COUNT 10.3 TH/MM3 (4.0-11.0)
[2017-09-01 12:31] LABS: APTT (PATIENT) 97.9 SEC (24.3-30.1)
--- NOTE | 2017-09-01 12:56 | EKG ---
Date Performed: 08/31/2017 Time Performed: 15:29:22 PTAGE: 57 years EKG: SINUS TACHYCARDIA Compared to prior tracing no significant change ABNORMAL RHYTHM ECG PREVIOUS TRACING : 08/31/2017 11.48 DOCTOR: Elliot Chavis Interpretating Date/Time 09/01/2017 12:54:48
[2017-09-01 13:24] LABS: APTT (PATIENT) 99.3 SEC (24.3-30.1)
[2017-09-01] MEDS: HEPARIN-D5W 25,000 U/250 ML 250 ML IV SCH (16:00)
[2017-09-01] MEDS: Intra-Venous SODIUM CHLORIDE 0.9% IV LINE 1000 ML IV SCH (16:00)
[2017-09-02] VITALS (19 sets, daily range): BP systolic 112–151; BP diastolic 62–83; PULSE 86–109; RESP 12–32; TEMP 98.1–98.8; O2SAT 94–100
[2017-09-02] MEDS: SODIUM CHLOR 0.9% 1000 ML INJ 1,000 ML IV SCH ×2 (02:33→13:42)
[2017-09-02] MEDS: RESP: ALBUTEROL 2.5 MG/IPRATROPIUM 0.5 MG NEB (SCH) INH ×5 (03:40→20:12)
[2017-09-02] MEDS: CHLORHEXIDINE GLUCONATE 2 % 1 PACK (2 CLOTHS) TOP SCH (04:00)
[2017-09-02 04:04] LABS: HEMATOCRIT 36.4 % (39.0-51.0); MEAN CELL VOLUME 92.8 FL (80.0-100.0); MEAN CORPUSCULAR HEMOGLOBIN 31.1 PG (27.0-34.0); MEAN CORPUSCULAR HGB CONC 33.5 % (32.0-36.0); PLATELET COUNT 220 TH/MM3 (150-450); RED BLOOD COUNT 3.92 MIL/MM3 (4.50-5.90); RED CELL DISTRIBUTION WIDTH 14.2 % (11.6-17.2); REVIEW FLAG FINAL; WHITE BLOOD COUNT 10.5 TH/MM3 (4.0-11.0)
[2017-09-02 04:19] LABS: BICARBONATE 26.7 MEQ/L (21.0-32.0)
[2017-09-02 04:21] LABS: APTT (PATIENT) 75.5 SEC (24.3-30.1)
[2017-09-02] MEDS: SODIUM CHLORIDE 0.9% FLUSH 10 ML FLUSH IV FLUSH SCH ×3 (09:34→21:00)
[2017-09-02] MEDS: BACLOFEN 10 MG TAB PO SCH ×2 (09:35→22:46)
[2017-09-02] MEDS: predniSONE 10 MG TAB PO SCH (09:35)
[2017-09-02] MEDS: DOCUSATE SODIUM 50 MG/SENNA 8.6 MG TAB PO SCH ×2 (09:35→22:46)
[2017-09-02] MEDS: OXYBUTYNIN CHLORIDE 5 MG TAB PO SCH ×2 (09:35→22:46)
[2017-09-02] MEDS: DEXTROAMPHETAMINE/AMPHETAMINE 20 MG TAB PO SCH ×2 (09:35→22:45)
[2017-09-02] MEDS: PANTOPRAZOLE SODIUM 40 MG VIAL IV PUSH SCH (09:35)
--- NOTE | 2017-09-02 10:15 | HHI.CCPN ---
Subjective Remarks/Hospital Course This is a 57-year-old male. Date of admission 08/31/2017. Past medical history includes MS, chronic prednisone use, bladder incontinence and chronic narcotic use.Mr. Thibodeaux presents with the [facility] episode of shortness of breath this morning while bending over to put on his socks. He is noted to have peripheral edema including his oromucosa and hands. Reports elevated blood pressure and tachycardia. Patient was placed on oxygen by neighbor with resolution of his symptoms. Denies any chest pain urinary or bowel symptoms. Denies any radiation or diaphoresis. Patient had a CT pulmonary angiogram at [place] revealed thrombus across the pulmonary bifurcation involving the bilateral upper and lower lobes of the lung. Heparin drip as well as written to be initiated at [place] but not started. Head CT was not done. Patient was transported to [facility] for further evaluation treatment. A central line has been placed and we'll start on alteplase at 2 mg an hour 6 hours per protocol. Started by heparin drip at 1 hour post conclusion Subjective: 09/01: Afebrile. The patient continues on heparin infusion status post alteplase infusion. Denies chest pain. O2 requirements decreased to nasal cannula 2 L/minute. Echo performed this morning results pending. 09/02: Patient's oxygen requirements decreased in the last 24 hours, O2 saturation 100% on 2 L/m. Nasal cannula discontinued this a.m., with inclusion of incentive spirometry every 4 hours added. Patient denies chest pain or dyspnea, continues to be on heparin infusion with plan transition to a PO anticoagulant. Family (daughter) has stated they do not want the patient to be transition to Coumadin therapy. The patient is being followed by Dr. Ledezma neurology who has been consulted for multiple sclerosis. Patient currently is on AntiCD 20 MAB therapy program with drug Ocrelizumab. He is scheduled to receive his fourth IV dosing in November 2017, and has concerns regarding the impact of his current condition with a massive pulmonary embolus and subsequent dosing of an anticoagulant. Hematology is consulted as well for possible genetic predisposition and prothrombotic studies to be performed as well as continued follow-up. Patient underwent echo yesterday that revealed an ejection fraction of 50-55% with a normal RV. Pharmacy has also been consulted regarding identification of contraindications to monoclonal antibody therapy and anticoagulant long-term therapy for patient's recent diagnosis of massive pulmonary embolus. Patient remains on strict bedrest at this time. Objective Vital Signs Date Time Temp Pulse Resp B/P (MAP) Pulse Ox O2 Delivery O2 Flow Rate FiO2 09/02/17 06:00 93 09/02/17 04:00 98.5 17 138/75 (96) 99 09/01/17 20:25 Nasal Cannula 2.00 Intake and Output 09/02/17 09/02/17 09/03/17 08:00 16:00 00:00 Intake Total 1000 ml Output Total 325 ml Balance 675 ml Result Diagram: 09/02/17 0350 09/02/17 0350 Imaging Last Impressions Chest X-Ray 08/31/17 1140 Signed Impressions: Service Date/Time: Thursday, August 31, 2017 12:45 - CONCLUSION: Mild interstitial prominence identified. Raghavendra Hughes MD CT Angiography 08/31/17 1140 Signed Impressions: Service Date/Time: Thursday, August 31, 2017 12:23 - CONCLUSION: Large bilateral pulmonary emboli including saddle embolus. Vance Nunez MD Objective Remarks GENERAL: This is a 57-year-old male, resting in bed on nasal cannula currently in no acute distress SKIN: Warm and dry. Well perfused HEAD: Atraumatic. Normocephalic. EYES: Pupils equal and round. No scleral icterus. No injection or drainage. ENT: No nasal bleeding or discharge. Mucous membranes pink and moist. NECK: Trachea midline. No JVD. CARDIOVASCULAR: Tachycardia, RR. S1, S2. No S4. Without murmur RESPIRATORY: No significant accessory muscle use.B/L breath sounds clear to auscultation. Breath sounds equal bilaterally. GASTROINTESTINAL: Abdomen soft, non-tender, nondistended. Normoactive bowel sounds . MUSCULOSKELETAL: Extremities with trace bilateral lower extremity edema. No obvious deformities. NEUROLOGICAL: Awake and alert. No obvious cranial nerve deficits. Motor grossly within normal limits. 5/5 muscle strength in the arms and legs. Normal speech. Date of Insertion: Aug 31, 2017 Line: Central Venous Catheter Side: Right Location: Internal, Jugular A/P Assessment and Plan Neuro/Psych: Chronic narcotic use MS ADHD Baclofen 10 mg by mouth BID /muscle relaxants, anti-spasmodic Currently on [place] 5/325 one tablet every 4 hours. Pain 1-5. Morphine sulfate 2 mg IV every 2 hours. Pain 6-10 Patient is on [place] 7.5/325 one tablet every 4 hours when necessary pain at home (on hold) Continue prednisone 15 mg by mouth daily Immunosuppressant unknown type on hold Continue Adderall 20 mg BID Patient is on monoclonal antibody therapy/protocol Ocrevus (IV) scheduled dosing for November 2017, Dr. Ledezma patient's neurologist has been consulted, concern for contraindications to MAB therapy and anticoagulant therapy due to massive PE, per patient request for clarification of therapies F/U Dr. Ledezma recommendations CV: Sinus tachycardia Elevated troponin - likely secondary to pulmonary embolism strain Currently normal saline at 84 cc/hour Currently not requiring vasopressors and/or antihypertensives 09/01 -2-D echocardiogram -EF 50-55 percent, RV normal, right ventricular systolic function may be mildly decreased ( poor visualization), trace MVR Troponins 0.64->0.40 downtrending Resp: Acute massive pulmonary embolism CT pulmonary angiogram revealed large thrombus across the pulmonary bifurcation involving right main lung, bilateral right upper middle lobe and left upper and lower lobes Nasal cannula to maintain saturations greater than equal to 90% Incentive spirometry while awake 08/31 Alteplase infusion see below at 10 mg an hour 6 hours with heparin drip at 500 units an hour. Initiated heparin drip for PE protocol 1 hour post alteplase infusion Heparin infusion continues with plan transition to PO anticoagulation. Family does not want patient to be transition to Coumadin. Pharmacy has been consulted , as well as Dr. Ledezma regarding monoclonal antibody therapy and any contraindications to long-term anticoagulation therapy. Plan for initiation of apixaban 10 mg twice a day 7 days to be followed by 5 mg twice a day 6 months with hematology follow-up Hematology consulted, prothrombotic studies ordered GI: Heart healthy diet Pantoprazole for GI prophylaxis Docusate sodium/senna for bowel regimen : Bladder spasm Continue oxybutynin 5 mg every 12 hours No indication for Kim catheter, condom catheter use Endo: Chronic prednisone use Sliding-scale insulin with Accu-Cheks to maintain euglycemia if indicated Continue home med prednisone dosing Renal: Monitor urine output Accurate I's and O's Heme: Leukocytosis Renal Doppler ultrasound bilateral lower extremities. Patient is relatively immobile to MS ID: Monitor for infection MSK: PT evaluate and treat Strict bed rest FEN: Replace electrolytes as clinically indicated Access - 11/18 Right IJ CVL (day 3) Prophylaxis - GI - pantoprazole - DVT - SCDs/currently on alteplase/heparin drip. Plan for transition to PO anticoagulation, apixaban with confirmation of no contraindications regarding current MS MAB ongoing therapy and optimization per discussion with pharmacist Marycarmen Garcia. 09/02 Will start apixaban 2 hours after discontinuation of heparin this evening and continue dosing 10 mg twice a day 7 days followed by 5 mg twice a day with continuation to be determined by hematology/or primary care physician post discharge Dispo: Extensive discussion with patient utilizing retanned leather roller via video Henrry # [id number]. Discussed with patient's daughter Ms Bo and patient's as well as HEALTHCARE MANAGEMENT CONSULTANT at bedside. All questions answered. Planned for optimization of treatment and selection of anticoagulant to begin PO transitioning and discontinuation of heparin infusion. Discussion with family over 65 minutes. Physician Serene Kellogg MD Sep 02, 2017 10:15
[2017-09-02] MEDS: HEPARIN-D5W 25,000 U/250 ML 250 ML IV PRN (15:16)
--- NOTE | 2017-09-02 15:44 | MB ---
cc: FRANCISCA GREGORY M.D. DATE OF CONSULTATION: 09/02/2017 DATE OF : 1960 REASON FOR CONSULTATION History of multiple sclerosis and now new diagnosis of pulmonary embolism. HISTORY OF PRESENT ILLNESS The patient is a 57-year-old man, a patient of my partner's Dr. Ledezam who was admitted 2 days ago, history of MS, chronic steroid use, bladder incontinence and apparently came to [facility] with shortness of breath, found to have a large pulmonary embolism, given TPA and now on heparin. The PE was seen at the pulmonary bifurcation in both upper and lower lobes of the lung. Head CT was not done. He was transported here. The patient is on Ocrevus and his next dose is in November and they were concerned, the family, the patient that he would not be able the continue with that. PAST MEDICAL HISTORY 1. MS as stated. 2. Hyperlipidemia. 3. Bladder incontinence, overflow. PAST SURGICAL HISTORY None. MEDICATION Home medicines: 1. Prednisone. 2. Baclofen. 3. Lortab. 4. Ditropan. PHYSICAL EXAMINATION VITAL SIGNS: Currently his vitals, temperature is 98.8, heart rate 109, respiratory rate 24, sating at 97% on room air. Blood pressure 149/62. NEURO: He is awake and alert. His pupils are reactive. Face is symmetrical. Tongue is midline. Motor gillespie, he uses his upper extremities appropriately but has some tremor with [id number], left greater than right. He can lift both legs antigravity but he has clonus in both ankles. Toes withdraws. DTRs are brisk throughout. Gait cannot be assessed at this time. LABORATORY DATA Labs are reviewed. Hypercoagulable panel is pending. IMAGING STUDIES His CT of the head was negative. His last CT angiography showed large bilateral pulmonary emboli including a saddle embolus. IMPRESSION Pulmonary embolus with a history of MS. I did discuss with the family that we will defer to the music critic as well as the plaster maker for the choice of anticoagulation and they are agreeable. Right now he is on Eliquis. Continue his home medications. There is no contraindication with Ocrevus and anticoagulation. He can go ahead and receive his next dose as planned in November. I will defer any further input from that perspective when he goes back to see Dr. Ledezma in the office but as far as I know there is no contraindication to long-term anticoagulation therapy and pharmacy was also called at the hospital that confirmed that. Continue current care. Have him followup with Dr. Ledezma next available appointment. MD HARPREET Bridges/MARGARETH /3:16 PM /3:36 PM
[2017-09-02] MEDS ORDERED: DIATRIZOATE MEGLUM/DIATRIZOATE SOD 9 ML CUP PO ONE (20:00)
--- NOTE | 2017-09-02 20:26 | MB ---
cc: VIMAL CARSON DATE OF CONSULTATION 09/02/[address] Gamino REASON FOR CONSULTATION Pulmonary embolism. HISTORY OF THE PRESENT ILLNESS Mr. Thibodeaux is a pleasant 57-year-old [place] male with history of MS. The patient is receiving a new MS medication Ocrevus. He normally he is able to walk short distance inside his house with the help of a walker. His was trying to take his socks off to put him in the shower and noticed the swelling in the feet. He rest for a few minutes, the swelling went away and then he took his shower. When he came out she noticed that all of the sudden he became short of breath and both of his hands were cold and whitish in color. They became concerned. Their family friend and physician, Dr. Pop arrived over there incidentally and noticed his oxygen saturation was low. EVAC was called. He was put on supplemental oxygen and brought to the hospital. He had a CT scan of the chest done which shows massive pulmonary embolism. The patient was admitted in the hospital. He had a thrombolytic therapy done with alteplase at the rate of 10 mg per hour for 6 hours and heparin drip. He feels significantly better. He is weaned down to room air. Denies any shortness of breath. No chest pain. PAST MEDICAL HISTORY Significant for: 1. A history of MS. 2. Bladder incontinence. MEDICATIONS He is currently takin. Eliquis 10 milligrams twice a day. 2. Prednisone 15 milligrams daily. 3. Protonix 40 milligrams daily. 4. Ditropan 5 milligrams q.12h. 5. Baclofen 10 milligrams twice a day. 6. Labetalol as needed. ALLERGIES NO KNOWN DRUG ALLERGIES. SOCIAL HISTORY He is . 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 He quit working 28 years ago after he was diagnosed with MS. FAMILY HISTORY He is and has four daughters. REVIEW OF SYSTEMS He uses a walker, walks only inside the house. No prior history of DVT or pulmonary embolism. No seizure, stroke or epilepsy. No bleeding from any sites. PHYSICAL EXAMINATION GENERAL: Shows a well-developed, well-nourished male not in acute distress. VITAL SIGNS: Blood pressure 124/72, heart rate 107, respirations 16, temperature 98.1. HEENT: Examination unremarkable. NECK: Supple. JVP not raised. CHEST: Air entry equal bilaterally. No rhonchi. CARDIOVASCULAR: S1-S2 normal. ABDOMEN: Soft. Nontender. Nondistended. Bowel sounds are present. EXTREMITIES: No edema. CENTRAL NERVOUS SYSTEM: Alert and oriented times three. No focal deficits. LABORATORY FINDINGS WBC count 10.5, hemoglobin 12.2, hematocrit 36.4, MCV 92, platelet count 220. Sodium 140, potassium 4.0, chloride 107, CO2 26, BUN 15, creatinine 0.85. IMPRESSION 1. Massive pulmonary embolism status post thrombolytic therapy. Now he is weaned down to room air. His echocardiogram does not show any right ventricular strain. 2. Multiple sclerosis. 3. Bladder incontinence. PLAN I discussed with the patient, his and daughter at the bedside, discussed with them risks and benefits of anticoagulation. They agree to continue with Eliquis 10 milligrams twice a day for seven days and then 5 milligrams twice a day for at least six months. Due to his functional status he may need life long anticoagulation. He will need hypercoagulable workup. He is stable on room air. Further treatment will depend on the course in the hospital. Thank you Dr. Gamino for this consultation. MD SHAMEKA Hanson/ELLIOT /5:37 PM /7:48 PM MTDMouna
[2017-09-02] MEDS ORDERED: APIXABAN 5 MG TABLET PO SCH (21:00)
[2017-09-02] MEDS: APIXABAN 5 MG TABLET PO SCH (22:46)
[2017-09-03] VITALS (14 sets, daily range): BP systolic 123–160; BP diastolic 69–84; PULSE 91–120; RESP 14–48; TEMP 98.3–99.5; O2SAT 93–100
[2017-09-03] MEDS: SODIUM CHLOR 0.9% 1000 ML INJ 1,000 ML IV SCH ×3 (01:23→23:54)
[2017-09-03] MEDS: RESP: ALBUTEROL 2.5 MG/IPRATROPIUM 0.5 MG NEB (SCH) INH ×4 (03:17→20:26)
[2017-09-03] MEDS: CHLORHEXIDINE GLUCONATE 2 % 1 PACK (2 CLOTHS) TOP SCH (04:00)
[2017-09-03] MEDS ORDERED: LORazepam 2 MG/ML VIAL ONE (04:19)
[2017-09-03] MEDS: MORPHINE SULFATE 4 MG/ML INJ IV PUSH PRN (04:28)
[2017-09-03] MEDS ORDERED: LORazepam 2 MG/ML VIAL IM ONE (04:30)
[2017-09-03] MEDS ORDERED: IOHEXOL 350 MG/ML 10 ML VIAL (for RAD DIAG) IVCONTRAST ONE (04:58)
--- NOTE | 2017-09-03 05:07 | RADRPT ---
EXAM DATE/TIME: 09/03/2017 04:48 [facility] COMPARISON: CT BRAIN W/O CONTRAST, August 31, 2017, 15:47. INDICATIONS : Altered mental status. RADIATION DOSE: 56.70 CTDIvol (mGy) MEDICAL HISTORY : Multple sclerosis. SURGICAL HISTORY : None. ENCOUNTER: Initial ACUITY: 1 day PAIN SCALE: Non-responsive LOCATION: cranial TECHNIQUE: Multiple contiguous axial images were obtained of the head. Using automated exposure control and adj ustment of the mA and/or kV according to patient size, radiation dose was kept as low as reasonably a chievable to obtain optimal diagnostic quality images. DICOM format image data is available electro nically for review and comparison. FINDINGS: CEREBRUM: The ventricles are normal for age. No evidence of midline shift, mass lesion, hemorrhage or acute in farction. No extra-axial fluid collections are seen. POSTERIOR FOSSA: The cerebellum and brainstem are intact. The 4th ventricle is midline. The cerebellopontine angle i s unremarkable. EXTRACRANIAL: The visualized portion of the orbits is intact. SKULL: The calvaria is intact. No evidence of skull fracture. CONCLUSION: No acute abnormality demonstrated. Lamberto Martinez MD on September 03, 2017 at 5:05 Board Certified Radiologist. This report was verified electronically.
--- NOTE | 2017-09-03 05:11 | RADRPT ---
EXAM DATE/TIME: 09/03/2017 04:50 [facility] COMPARISON: CT ABDOMEN & PELVIS W/O CONTRAST, May 21, 2015, 20:12. CT PULMONARY ANGIOGRAM, August 31, 2017, 12:23. INDICATIONS : Evaluate for occult malignancy. IV CONTRAST: 95 cc Omnipaque 350 (iohexol) IV ORAL CONTRAST: Prescribed oral contrast ingested. RADIATION DOSE: 16.38 CTDIvol (mGy) MEDICAL HISTORY : Multple sclerosis. Renal calculi. Pulmonary embolism. SURGICAL HISTORY : None. ENCOUNTER: Initial ACUITY: 1 day PAIN SCALE: 0/10 LOCATION: Bilateral abdomen TECHNIQUE: Volumetric scanning of the abdomen and pelvis was performed. Using automated exposure control and ad justment of the mA and/or kV according to patient size, radiation dose was kept as low as reasonably achievable to obtain optimal diagnostic quality images. DICOM format image data is available electro nically for review and comparison. FINDINGS: LOWER LUNGS: Bilateral pulmonary emboli again noted. There is trace bibasilar atelectasis and a tiny right pleural effusion. LIVER: Homogeneous density without lesion. There is no dilation of the biliary tree. No calcified gallston es. SPLEEN: Normal size without lesion. PANCREAS: Within normal limits. KIDNEYS: 21 mm simple appearing cyst of the right mid zone. ADRENAL GLANDS: Within normal limits. VASCULAR: There is no aortic aneurysm. BOWEL/MESENTERY: The stomach, small bowel, and colon demonstrate no acute abnormality. There is no free intraperitone al air or fluid. The appendix is well-visualized and normal. ABDOMINAL WALL: Within normal limits. RETROPERITONEUM: There is no lymphadenopathy. BLADDER: No wall thickening or mass. REPRODUCTIVE: Within normal limits. INGUINAL: There is no lymphadenopathy or hernia. MUSCULOSKELETAL: No acute bony abnormality demonstrated. Degenerative changes are seen of the spine. No lytic or scler otic lesions are demonstrated. CONCLUSION: 1. No evidence of malignancy or other acute abnormality within the abdomen or pelvis. 2. Simple, benign appearing right renal cyst. Lamberto Martinez MD on September 03, 2017 at 5:07 Board Certified Radiologist. This report was verified electronically.
[2017-09-03 05:22] LABS: BLOOD GAS BASE EXCESS -0.7 mmol/L (-2-2); BLOOD GAS CARBOXYHEMOGLOBIN 0.7 % (0-4); BLOOD GAS HCO3 23 mmol/L (22-26); BLOOD GAS METHEMOGLOBIN 1.1 % (0-2); BLOOD GAS O2 HGB SATURATION 96 % (90-100); BLOOD GAS OXYGEN CONTENT 16.1 Vol % (12.0-20.0); BLOOD GAS PCO2 36 mmHg (38-42); BLOOD GAS PO2 108 mmHg (61-120); BLOOD GAS TOTAL HGB 11.8 G/DL (12.0-16.0); CRITICAL VALUE NO; DRAW SITE RT RADIAL; FIO2 4 %; NUMBER OF ARTERIAL PUNCTURES 1; OXYGEN DEVICE NASAL CANNULA; STAT YES; TEMP CORR TO 98.6; ULNAR PULSE PRESENT
--- NOTE | 2017-09-03 06:48 | MB ---
cc: FRANSISCO CAMACHO M.D. DATE OF CONSULTATION 09/02/2017 REASON FOR CONSULTATION Consult requested by Dr. Gamino, rate manager for evaluation of pulmonary embolism. HISTORY OF PRESENT ILLNESS Russel is a 57-year-old male. He has a history of multiple sclerosis and he has a problem in ambulation. Most of the history is obtained through his daughter. His daughter states that the patient is able to walk only in the home, but it is limited. He was brought into the emergency room after he was complaining of acute shortness of breath. He was noted to have a purple color of his toes and lips. When he was brought in, he states his neighbor is a physician who had called the paramedics. The neighbor who is a primary care physician and also his friend, but he does not practice in this area. He practices in [place] and he is a locum tenant also. In the emergency room, the patient had a CT angiogram of the chest which showed bilateral pulmonary embolism with a saddle embolism. He was transferred from [facility] to the [facility] and underwent TPA therapy due to the high clot burden from pulmonary embolism. The patient is now on heparin. The order has been placed to start him on Eliquis tonight and heparin will be stopped. Hypercoagulable panel has been ordered by the rate manager. I have been asked to see him for further evaluation. The patient does not know about his family history of thrombosis as he was adopted. He has two daughters and no sons. Both daughters are well and have no evidence of thrombosis. The patient had a Doppler ultrasound of both lower legs which does not show any DVT. The discoloration of his lower leg and lips have now resolved. The discoloration was due to the cyanosis from massive pulmonary embolism. The patient has dysarthria and his speech is very slow and monotonous. The rest of the review of systems is difficult to obtain. PAST MEDICAL HISTORY 1. Multiple sclerosis 2. Hyperlipidemia PAST SURGICAL HISTORY None ALLERGIES None MEDICATIONS 1. Heparin 2. The patient is going to be started on Eliquis tonight. 3. Adderall 4. Cassandra-Colace 5. Baclofen 6. Prednisone 7. Protonix 8. DuoNeb 9. Ditropan FAMILY HISTORY The patient is adopted. He does not know about his biological parents and siblings. He has two daughters and no sons. SOCIAL HISTORY The patient is , lives with his , does not smoke cigarettes. Does not drink alcohol. PHYSICAL EXAM This is a well-developed, well-nourished white male in no apparent distress. VITAL SIGNS: Temperature 98.1, heart rate is 105, blood pressure is 124/72, O2 saturation 95%. HEENT: PERRLA, EOMI, anicteric. No oral lesions noted. NECK: No lymphadenopathy noted. LUNGS: Clear. No wheezing, rhonchi or rales. HEART: Regular rate and rhythm. ABDOMEN: Soft and nontender. No hepatosplenomegaly. EXTREMITIES: No pedal edema. NEUROLOGIC: Awake, alert, and oriented times three. SKIN: No significant lesions are noted. ASSESSMENT 1. Unprovoked massive pulmonary embolism status post TPA, now on heparin and will start Eliquis tonight. 2. No history of DVT of the lower legs or any previous history of thromboembolic disease. 3. Multiple sclerosis with limited mobility. PLAN I have reviewed his available records and I had an extensive discussion with the patient, his and daughter regarding the pulmonary embolism. This is his first unprovoked episode of pulmonary embolism. The Doppler ultrasound of his lower legs does not show any DVTs. The patient is limited to walk due to the multiple sclerosis. A hypercoagulable panel has been ordered by the rate manager and it will take several days to get the results back. The management of PE will not change at this time. The patient already had received TPA and now he is on heparin. He will be started on Eliquis 10 mg twice a day tonight. We discussed that due to the massive pulmonary embolism, my recommendation is anticoagulation for at least one year. The results of the hypercoagulable panel will also determine the length of the anticoagulation. Occult malignancy certainly can cause thromboembolic disease. The CT angiogram of the chest does not show any lung masses. I will get the CT scan of the abdomen and pelvis to evaluate for any occult malignancy. My clinical suspicion is very low for him to have any occult malignancy. This certainly could be a possibility. The patient and his family have asked several questions and these were answered to their satisfaction. Thank you for asking my opinion. Michelle Camacho MD /BIJAN /12:01 AM /6:38 AM MTDMouna
[2017-09-03 06:58] LABS: HEMATOCRIT 33.7 % (39.0-51.0); MEAN CELL VOLUME 93.4 FL (80.0-100.0); MEAN CORPUSCULAR HEMOGLOBIN 31.6 PG (27.0-34.0); MEAN CORPUSCULAR HGB CONC 33.8 % (32.0-36.0); PLATELET COUNT 207 TH/MM3 (150-450); RED CELL DISTRIBUTION WIDTH 13.9 % (11.6-17.2); REVIEW FLAG FINAL; WHITE BLOOD COUNT 12.2 TH/MM3 (4.0-11.0)
[2017-09-03 07:08] LABS: BLOOD, URINE NEG (NEG); GLUCOSE,URINE NEG (NEG); KETONE, URINE NEG (NEG); MUCUS URINE FEW /lpf (OCC); NITRITE,URINE NEG (NEG); PH, URINE 6.5 (5.0-8.5); SQUAMOUS EPITHELIAL CELL URINE <1 /hpf (0-5); URINE COLOR LIGHT-YELLOW (YELLW/STRAW)
[2017-09-03 07:11] LABS: COMMENT (UR) CATH-CULT NOT IND; CULTURE IF INDICATED CATH CULTURE NOT IND
[2017-09-03] MEDS: predniSONE 10 MG TAB PO SCH (09:00)
[2017-09-03] MEDS: APIXABAN 5 MG TABLET PO SCH ×2 (09:00→20:24)
[2017-09-03] MEDS: SODIUM CHLORIDE 0.9% FLUSH 10 ML FLUSH IV FLUSH SCH ×3 (09:00→21:00)
[2017-09-03] MEDS: DOCUSATE SODIUM 50 MG/SENNA 8.6 MG TAB PO SCH ×2 (09:00→20:24)
[2017-09-03] MEDS: DEXTROAMPHETAMINE/AMPHETAMINE 20 MG TAB PO SCH ×2 (09:00→20:24)
[2017-09-03] MEDS: PANTOPRAZOLE SODIUM 40 MG VIAL IV PUSH SCH (09:00)
[2017-09-03] MEDS: OXYBUTYNIN CHLORIDE 5 MG TAB PO SCH ×2 (09:00→20:24)
[2017-09-03] MEDS: BACLOFEN 10 MG TAB PO SCH ×2 (09:00→20:24)
--- NOTE | 2017-09-03 10:44 | HHI.CCPN ---
Subjective Remarks/Hospital Course This is a 57-year-old male. Date of admission 08/31/2017. Past medical history includes MS, chronic prednisone use, bladder incontinence and chronic narcotic use.Mr. Thibodeaux presents with the [facility] episode of shortness of breath this morning while bending over to put on his socks. He is noted to have peripheral edema including his oromucosa and hands. Reports elevated blood pressure and tachycardia. Patient was placed on oxygen by neighbor with resolution of his symptoms. Denies any chest pain urinary or bowel symptoms. Denies any radiation or diaphoresis. Patient had a CT pulmonary angiogram at [facility] revealed thrombus across the pulmonary bifurcation involving the bilateral upper and lower lobes of the lung. Heparin drip as well as written to be initiated at [facility] but not started. Head CT was not done. Patient was transported to [facility] for further evaluation treatment. A central line has been placed and we'll start on alteplase at 2 mg an hour 6 hours per protocol. Started by heparin drip at 1 hour post conclusion Subjective: 09/01: Afebrile. The patient continues on heparin infusion status post alteplase infusion. Denies chest pain. O2 requirements decreased to nasal cannula 2 L/minute. Echo performed this morning results pending. 09/02: Patient's oxygen requirements decreased in the last 24 hours, O2 saturation 100% on 2 L/m. Nasal cannula discontinued this a.m., with inclusion of incentive spirometry every 4 hours added. Patient denies chest pain or dyspnea, continues to be on heparin infusion with plan transition to a PO anticoagulant. Family (daughter) has stated they do not want the patient to be transition to Coumadin therapy. The patient is being followed by Dr. Ledezma neurology who has been consulted for multiple sclerosis. Patient currently is on AntiCD 20 MAB therapy program with drug Ocrelizumab. He is scheduled to receive his fourth IV dosing in November 2017, and has concerns regarding the impact of his current condition with a massive pulmonary embolus and subsequent dosing of an anticoagulant. Hematology is consulted as well for possible genetic predisposition and prothrombotic studies to be performed as well as continued follow-up. Patient underwent echo yesterday that revealed an ejection fraction of 50-55% with a normal RV. Pharmacy has also been consulted regarding identification of contraindications to monoclonal antibody therapy and anticoagulant long-term therapy for patient's recent diagnosis of massive pulmonary embolus. Patient remains on strict bedrest at this time. Reconsulted: 09/03: Overnight the patient became confused, and combative. The patient received 3 mg of Ativan with 2 mg of morphine at 4:30 AM. The patient became more altered at that time. Neurology was notified, CT of the brain was performed negative. MRI currently pending. Eliquis an additional a.m. meds placed on hold, pending results. Objective Vital Signs Date Time Temp Pulse Resp B/P (MAP) Pulse Ox O2 Delivery O2 Flow Rate FiO2 09/03/17 05:23 96 Nasal Cannula 4.00 09/03/17 04:00 120 09/03/17 04:00 99.5 48 153/81 (105) 09/02/17 20:10 21 Intake and Output 09/03/17 09/03/17 09/04/17 08:00 16:00 00:00 Intake Total 720 ml Output Total 1780 ml Balance -1060 ml Result Diagram: 09/03/17 0530 09/02/17 0350 Other Results Laboratory Tests Test 09/03/17 05:12 Blood Gas Puncture Site RT RADIAL Blood Gas Patient Temperature 98.6 Blood Gas HCO3 23 mmol/L (22-26) Blood Gas Base Excess -0.7 mmol/L (-2-2) Blood Gas Oxygen Saturation 96 % (90-100) Arterial Blood pH 7.42 (7.380-7.420) Arterial Blood Partial Pressure CO2 36 mmHg (38-42) Arterial Blood Partial Pressure O2 108 mmHg (61-120) Arterial Blood Oxygen Content 16.1 Vol % (12.0-20.0) Arterial Blood Carboxyhemoglobin 0.7 % (0-4) Arterial Blood Methemoglobin 1.1 % (0-2) Blood Gas Hemoglobin 11.8 G/DL (12.0-16.0) Oxygen Delivery Device NASAL CANNULA Blood Gas Inspired Oxygen 4 % Imaging Last Impressions Chest X-Ray 08/31/17 1140 Signed Impressions: Service Date/Time: Thursday, August 31, 2017 12:45 - CONCLUSION: Mild interstitial prominence identified. Raghavendra Hughes MD CT Angiography 08/31/17 1140 Signed Impressions: Service Date/Time: Thursday, August 31, 2017 12:23 - CONCLUSION: Large bilateral pulmonary emboli including saddle embolus. Vance Nunez MD Objective Remarks GENERAL: This is a 57-year-old male, resting in bed on nasal cannula currently in no acute distress, mildly confused SKIN: Warm and dry. Well perfused HEAD: Atraumatic. Normocephalic. EYES: Pupils equal and round. No scleral icterus. No injection or drainage. ENT: No nasal bleeding or discharge. Mucous membranes pink and moist. NECK: Trachea midline. No JVD. CARDIOVASCULAR: Tachycardia, RR. S1, S2. No S4. Without murmur RESPIRATORY: No significant accessory muscle use.B/L breath sounds clear to auscultation. Breath sounds equal bilaterally. GASTROINTESTINAL: Abdomen soft, non-tender, nondistended. Normoactive bowel sounds . MUSCULOSKELETAL: Extremities with trace bilateral lower extremity edema. No obvious deformities. NEUROLOGICAL: Awake and alert. No obvious cranial nerve deficits. Motor grossly within normal limits. 5/5 muscle strength in the arms and legs. Normal speech. Confusion alert to name, recognizes family, think she is in a medical office Date of Insertion: Aug 31, 2017 Date of Removal: Sep 02, 2017 Line: Central Venous Catheter Side: Right Location: Internal, Jugular A/P Assessment and Plan Neuro/Psych: Chronic narcotic use MS ADHD Altered mental status ICU delirium? Baclofen 10 mg by mouth BID /muscle relaxants, anti-spasmodic Currently on Aurora 5/325 one tablet every 4 hours. Pain 1-5. Morphine sulfate 2 mg IV every 2 hours. Pain 6-10 Patient is on Aurora 7.5/325 one tablet every 4 hours when necessary pain at home (on hold) Continue prednisone 15 mg by mouth daily Immunosuppressant unknown type on hold Continue Adderall 20 mg BID Patient is on monoclonal antibody therapy/protocol Ocrevus (IV) scheduled dosing for November 2017, Dr. Ledezma patient's neurologist has been consulted, concern for contraindications to MAB therapy and anticoagulant therapy due to massive PE, per patient request for clarification of therapies Dr. Huerta following 09/03 noted to have altered mental status last night, received 3 mg of Ativan with 2 mg of morphine IV at approximately 4:30 AM, with escalation of confusion. 09/03-EEG obtained-preliminary negative, CT brain-no acute abnormality, MRI pending Report of patient's family, several episodes of confusion noted at home similar presentation, previously Will maintain sleep hygiene CV: Sinus tachycardia Elevated troponin - likely secondary to pulmonary embolism strain Currently normal saline at 84 cc/hour Currently not requiring vasopressors and/or antihypertensives 09/01 -2-D echocardiogram -EF 50-55 percent, RV normal, right ventricular systolic function may be mildly decreased ( poor visualization), trace MVR Troponins 0.64->0.40 downtrending Resp: Acute massive pulmonary embolism CT pulmonary angiogram revealed large thrombus across the pulmonary bifurcation involving right main lung, bilateral right upper middle lobe and left upper and lower lobes Nasal cannula to maintain saturations greater than equal to 90% Incentive spirometry while awake 08/31 Alteplase infusion see below at 10 mg an hour 6 hours with heparin drip at 500 units an hour. Initiated heparin drip for PE protocol 1 hour post alteplase infusion Heparin infusion continues with plan transition to PO anticoagulation. Family does not want patient to be transition to Coumadin. Pharmacy has been consulted , as well as Dr. Ledezma regarding monoclonal antibody therapy and any contraindications to long-term anticoagulation therapy. Plan for initiation of apixaban 10 mg twice a day 7 days to be followed by 5 mg twice a day 6 months with hematology follow-up. Apixiban on hold pending MRI Hematology consulted, prothrombotic studies ordered GI: Heart healthy diet Pantoprazole for GI prophylaxis Docusate sodium/senna for bowel regimen : Bladder spasm Continue oxybutynin 5 mg every 12 hours No indication for Kim catheter, condom catheter use Endo: Chronic prednisone use Sliding-scale insulin with Accu-Cheks to maintain euglycemia if indicated Continue home med prednisone dosing Renal: Monitor urine output Accurate I's and O's Heme: Leukocytosis Renal Doppler ultrasound bilateral lower extremities. Patient is relatively immobile to MS ID: Monitor for infection MSK: PT evaluate and treat Out of bed to chair-pending MRI results FEN: Replace electrolytes as clinically indicated Access - 08/31 Right IJ CVL (day 3)discontinued 09/02 Prophylaxis - GI - pantoprazole - DVT - SCDs/currently on alteplase/heparin drip. Plan for transition to PO anticoagulation, apixaban with confirmation of no contraindications regarding current MS MAB ongoing therapy and optimization per discussion with pharmacist Marycarmen Garcia. 09/02 Will start apixaban 2 hours after discontinuation of heparin this evening and continue dosing 10 mg twice a day 7 days followed by 5 mg twice a day with continuation to be determined by hematology/or primary care physician post discharge Dispo: Extensive discussion with patient utilizing fruit and vegetable classer via video Amari. Discussed with patient's daughters (3) as well as MARKETING AUTOMATION SPECIALIST at bedside. All questions answered. Planned for optimization of treatment and selection of anticoagulant to begin PO transitioning and discontinuation of heparin infusion. Discussion with family over 54 minutes. Level 3 Physician Serene Kellogg MD Sep 03, 2017 10:44
--- NOTE | 2017-09-03 12:06 | RADRPT ---
EXAM DATE/TIME: 09/03/2017 11:11 [facility] COMPARISON: February 2010, use for comparison. INDICATIONS : Altered mental status. CONTRAST: 17 cc Omniscan (gadodiamide) IV MEDICAL HISTORY : Multiple sclerosis. SURGICAL HISTORY : None. ENCOUNTER: Initial ACUITY: 3 day PAIN SCORE: 0/10 LOCATION: Head TECHNIQUE: Multiplanar, multisequence MRI of the brain was performed both prior to and following the administration of paramagnetic contrast. FINDINGS: Multiplanar, multisequence image of the brain again demonstrates areas of increased signal throughout the deep white matter tracts of the periventricular white matter suspicious for a demyelinating proc ess. There is some areas within the brain stem and the abdiel all quite similar to the 2010 exam. The re is an area of slightly increased signal more rounded lacunar type in left thalamus also similar to the 2010 exam. Pre and post contrast images show no abnormal areas of enhancement. I do not see an y focal plaque like areas of enhancement. There is no acute mass effect. No subarachnoid, subdural hematomas identified. CONCLUSION: Multiple areas of demyelinization in the periventricular white matter in a pattern suggesting a previ ously demyelinating process. Today's exam is very similar to 2010. No acute enhancing lesions ident ified. Hugh Berg MD on September 03, 2017 at 11:51 Board Certified Radiologist. This report was verified electronically.
[2017-09-03] MEDS ORDERED: GADODIAMIDE PF 287 MG/ML 20 ML VIAL (for RAD MRI) IV PUSH ONE (12:50)
--- NOTE | 2017-09-03 14:10 | MG ---
cc: NOEMI CASTILLO M.D., DALIA M.D. Lab No: Date: 09/03/2017 Age: Sex: M INDICATION An EEG was obtained on this 57-year-old patient, confused, combative overnight. DESCRIPTION The patient is described as awake and asleep during the EEG. The study shows 8-9 per second mid amplitude alpha rhythms posteriorly. The background is reactive. There are beta rhythms centrally and frontally. There is some drowsiness. Photic stimulation showed no change. Later on there is more drowsiness and probably some sleep stage II. INTERPRETATION Normal awake and drowsy EEG. Noemi Castillo MD [facility]/BT /1:39 PM /2:05 PM
--- NOTE | 2017-09-03 15:33 | PD.ONC.PN ---
Subjective Subjective Remarks Afebrile Pt had bout of confusion last night and became combative Still somewhat confused now Had MRI of the brain this am Pt's planning to stay all night tonight Pt currently denies SOB C/o constipation Objective Data Date Time Temp Pulse Resp B/P (MAP) Pulse Ox O2 Delivery O2 Flow Rate FiO2 09/03/17 14:00 100 09/03/17 12:09 95 09/03/17 12:09 95 35 140/78 (98) 99 09/03/17 12:00 94 22 100 09/03/17 12:00 94 09/03/17 10:01 97 24 160/84 (109) 98 09/03/17 10:01 97 09/03/17 10:00 98 17 99 09/03/17 10:00 98 09/03/17 09:00 95 09/03/17 09:00 95 16 158/74 (102) 99 09/03/17 08:00 97 17 141/72 (95) 99 09/03/17 08:00 97 09/03/17 05:23 96 Nasal Cannula 4.00 09/03/17 04:00 120 09/03/17 04:00 99.5 120 48 153/81 (105) 93 09/03/17 00:00 98.4 107 33 123/74 (90) 93 09/03/17 00:00 107 09/02/17 20:10 98 21 09/02/17 20:00 98.4 107 25 141/70 (93) 96 09/02/17 20:00 107 09/02/17 18:00 105 27 123/79 (94) 96 09/02/17 17:00 105 26 112/75 (87) 96 09/02/17 16:00 107 09/02/17 16:00 98.1 107 16 124/72 (89) 95 09/03/17 09/03/17 09/03/17 07:00 15:00 23:00 Intake Total 720 ml Output Total 1780 ml Balance -1060 ml Result Diagram: 09/03/17 0530 09/02/17 0350 Laboratory Results Laboratory Tests Test 09/03/17 05:12 09/03/17 05:30 09/03/17 06:00 Blood Gas Puncture Site RT RADIAL Blood Gas Patient Temperature 98.6 Blood Gas HCO3 23 mmol/L Blood Gas Base Excess -0.7 mmol/L Blood Gas Oxygen Saturation 96 % Arterial Blood pH 7.42 Arterial Blood Partial Pressure CO2 36 mmHg Arterial Blood Partial Pressure O2 108 mmHg Arterial Blood Oxygen Content 16.1 Vol % Arterial Blood Carboxyhemoglobin 0.7 % Arterial Blood Methemoglobin 1.1 % Blood Gas Hemoglobin 11.8 G/DL Oxygen Delivery Device NASAL CANNULA Blood Gas Inspired Oxygen 4 % White Blood Count 12.2 TH/MM3 Red Blood Count 3.60 MIL/MM3 Hemoglobin 11.4 GM/DL Hematocrit 33.7 % Mean Corpuscular Volume 93.4 FL Mean Corpuscular Hemoglobin 31.6 PG Mean Corpuscular Hemoglobin Concent 33.8 % Red Cell Distribution Width 13.9 % Platelet Count 207 TH/MM3 Mean Platelet Volume 10.0 FL Urine Color LIGHT-YELLOW Urine Turbidity CLEAR Urine pH 6.5 Urine Specific [place] 1.015 Urine Protein NEG mg/dL Urine Glucose (UA) NEG mg/dL Urine Ketones NEG mg/dL Urine Occult Blood NEG Urine Nitrite NEG Urine Bilirubin NEG Urine Urobilinogen LESS THAN 2.0 MG/DL Urine Leukocyte Esterase NEG Urine RBC LESS THAN 1 /hpf Urine WBC LESS THAN 1 /hpf Urine Squamous Epithelial Cells <1 /hpf Urine Mucus FEW /lpf Microscopic Urinalysis Comment CATH-CULT NOT IND Imaging Studies Last [address] 09/03/17 0000 Signed Impressions: Service Date/Time: Sunday, September 03, 2017 04:48 - CONCLUSION: No acute abnormality demonstrated. Lamberto Martinez MD Brain MRI 09/03/17 0000 Signed Impressions: Service Date/Time: Sunday, September 03, 2017 11:11 - CONCLUSION: Multiple areas of demyelinization in the periventricular white matter in a pattern suggesting a previously demyelinating process. Today's exam is very similar to 2010. No acute enhancing lesions identified. Hugh Berg MD Administered Medications Medications (Trade) Dose Ordered Sig/Cyril Route PRN Reason Start Time Stop Time Status Last Admin Dose Admin Amphetamine/ Dextroamphetamine (Adderall) 20 mg BID PO 08/31/17 21:00 09/02/17 22:45 Oxybutynin Chloride (Ditropan) 5 mg Q12HR PO 08/31/17 21:00 09/02/17 22:46 Prednisone (Deltasone) 15 mg DAILY PO 09/01/17 09:00 09/02/17 09:35 Sodium Chloride 1,000 ml @ 84 mls/hr [id number] IV 08/31/17 13:15 09/03/17 01:23 Sodium Chloride (NS Flush) 2 ml BID IV FLUSH 08/31/17 21:00 09/02/17 09:34 Morphine Sulfate (Morphine Inj) 2 mg Q2H PRN IV PUSH PAIN SCALE 6 TO 10 08/31/17 13:15 09/03/17 04:28 Pantoprazole Sodium (Protonix Inj) 40 mg DAILY IV PUSH 09/01/17 09:00 09/02/17 09:35 Albuterol/ Ipratropium (Duoneb Neb) 1 ampule Q6HR NEB INH 08/31/17 16:00 09/02/17 20:12 Miscellaneous Information 1 Q361D XX 08/31/17 13:15 08/31/17 13:15 Chlorhexidine Gluconate (Chlorhexidine 2% Cloth) 3 pack Taper DAILY@04 TOP 09/01/17 04:00 08/28/18 03:59 09/02/17 04:00 Senna/Docusate Sodium (Cassandra-Colace) 1 tab BID PO 08/31/17 21:00 09/02/17 22:46 Alteplase, Recombinant 10 mg/ Sodium Chloride 500 ml @ 100 mls/hr TITRATE PRN IV See Protocol Table 08/31/17 16:00 08/31/17 22:20 Sodium Chloride (NS Flush) DAILY IV FLUSH 09/01/17 09:00 09/02/17 09:34 Baclofen (Lioresal) 10 mg BID PO 08/31/17 21:00 09/02/17 22:46 Apixaban (Eliquis) 10 mg BID PO 09/02/17 21:00 09/02/17 22:46 Objective Remarks GENERAL: Older male, resting in bed with visitors present in no obvious distress SKIN: Warm and dry. HEAD: Normocephalic. EYES: No injection or drainage. NECK: Supple, trachea midline. CARDIOVASCULAR: Regular rate and rhythm without murmurs. RESPIRATORY: Clear anteriorly. Breathing unlabored. GASTROINTESTINAL: Abdomen soft, non-tender, nondistended. EXTREMITIES: No cyanosis, or edema. MUSCULOSKELETAL: Adequate muscle tone. NEUROLOGICAL: Alert. Slow speech. Following commands. Assessment/Plan Problem List: (1) Pulmonary embolus ICD Codes: I26.99 - Other pulmonary embolism without acute cor pulmonale Status: Acute Plan: 09/03/17: Continue Eliquis. Monitor Hgb. MRI of the brain stable. Facesheet faxed to new patient referrals. Follow-up in clinic to go over hypercoagulable workup results. -- Status post TPA -- Hypercoagulable workup pending -- Ultrasound bilateral lower extremities showed no clot -- Plan for anticoagulation at least 1 year Assessment 57-year-old male with history of multiple sclerosis admitted for shortness of breath found to have saddle pulmonary embolus. Attending Statement The exam, history, and the medical decision-making described in the above note were completed with the assistance of the mid-level provider. I reviewed and agree with the findings presented. I attest that I had a [id number] encounter with the patient on the same day, and personally performed and documented my assessment and findings in the medical record. Patient is confused. Had mental status change last night. MRI of the brain does not show any new findings other than demyelinating changes. CAT scan of the abdomen and pelvis does not show any evidence of Malignancy. No evidence of malignancy as a cause of thromboembolic disease. Hypercoag panel Result is pending. It will take several days to get the results back. Initial management is not going to be change. Continue Eliquis, Okay to discharge from my standpoint. Problem Qualifiers (1) Pulmonary embolus: Qualified Codes: I26.92 - Saddle embolus of pulmonary artery without acute cor pulmonale Shanika Renteria Sep 03, 2017 15:33 Do Camacho MD Sep 04, 2017 01:07
[2017-09-03] MEDS ORDERED: MELATONIN 5 MG TAB PO PRN (19:15)
[2017-09-03] MEDS ORDERED: ZOLPIDEM TARTRATE 10 MG TAB PO PRN (19:15)
--- NOTE | 2017-09-03 19:19 | HHI.PR ---
Subjective Remarks YO Male with Massive, PE,s/p TPA On Eliquis Denies sob, CP, or dizzyness Had Episode of agitation, calm now Objective Vital Signs Vital Signs Date Time Temp Pulse Resp B/P (MAP) Pulse Ox O2 Delivery O2 Flow Rate FiO2 09/03/17 18:31 98 Nasal Cannula 3.00 09/03/17 16:00 91 14 97 09/03/17 16:00 91 09/03/17 16:00 91 09/03/17 14:00 100 09/03/17 12:09 95 09/03/17 12:09 95 35 140/78 (98) 99 09/03/17 12:00 94 22 100 09/03/17 12:00 94 09/03/17 10:01 97 24 160/84 (109) 98 09/03/17 10:01 97 09/03/17 10:00 98 17 99 09/03/17 10:00 98 09/03/17 09:00 95 09/03/17 09:00 95 16 158/74 (102) 99 09/03/17 08:00 97 17 141/72 (95) 99 09/03/17 08:00 97 09/03/17 05:23 96 Nasal Cannula 4.00 09/03/17 04:00 120 09/03/17 04:00 99.5 120 48 153/81 (105) 93 09/03/17 00:00 98.4 107 33 123/74 (90) 93 09/03/17 00:00 107 09/02/17 20:10 98 21 09/02/17 20:00 98.4 107 25 141/70 (93) 96 09/02/17 20:00 107 I/O 09/02/17 09/02/17 09/02/17 09/03/17 09/03/17 09/03/17 07:00 15:00 23:00 07:00 15:00 23:00 Intake Total 1000 ml 259 ml 3190 ml 720 ml 930 ml Output Total 325 ml 625 ml 1780 ml 1600 ml Balance 675 ml 259 ml 2565 ml -1060 ml -670 ml Intake Oral 944 ml 720 ml 930 ml IV Total 1000 ml 259 ml 2246 ml Output Urine Total 325 ml 625 ml 1780 ml 1600 ml # Voids 2 # Bowel Movements 1 Result Diagram: 09/03/17 0530 09/02/17 0350 Objective Remarks GENERAL: WBWN male, NAD SKIN: Warm and dry. HEAD: Normocephalic. EYES: No scleral icterus. No injection or drainage. NECK: Supple, trachea midline. No JVD or lymphadenopathy. CARDIOVASCULAR: Regular rate and rhythm without murmurs, gallops, or rubs. RESPIRATORY: Breath sounds equal bilaterally. No accessory muscle use. GASTROINTESTINAL: Abdomen soft, non-tender, nondistended. MUSCULOSKELETAL: No cyanosis, or edema. BACK: Nontender without obvious deformity. No CVA tenderness. A/P Assessment and Plan Massive PE, s/p TPA MS Agitation, resolved PLAN: Cont Eliquis [id number] DW pt and his at BS Wayne Jacob MD Sep 03, 2017 19:19
--- NOTE | 2017-09-03 19:34 | EKG ---
Date Performed: 09/03/2017 Time Performed: 06:00:26 PTAGE: 57 years EKG: Sinus tachycardia. Since PREVIOUS TRACING , no significant change noted Normal ECG except for rate PREVIOUS TRACIN 08/31/2017 15.29.22 DOCTOR: Kostas Ko Interpretating Date/Time 09/03/2017 19:33:14
[2017-09-04] VITALS (19 sets, daily range): BP systolic 123–146; BP diastolic 63–86; PULSE 84–115; RESP 18–32; TEMP 98–99.3; O2SAT 93–99
[2017-09-04] MEDS: RESP: ALBUTEROL 2.5 MG/IPRATROPIUM 0.5 MG NEB (SCH) INH ×2 (03:52→09:39)
[2017-09-04] MEDS: CHLORHEXIDINE GLUCONATE 2 % 1 PACK (2 CLOTHS) TOP SCH (04:00)
[2017-09-04 06:20] LABS: AUTOMATED NEUTROPHIL # 6.9 TH/MM3 (1.8-7.7); BASOPHIL # 0.1 TH/MM3 (0-0.2); BASOPHIL % 0.7 % (0.0-2.0); EOSINOPHIL # 0.4 TH/MM3 (0-0.4); EOSINOPHIL % 4.3 % (0.0-4.0); HEMATOCRIT 36.6 % (39.0-51.0); HEMO FLAGS DIFF FINAL; LYMPH % 11.7 % (9.0-44.0); LYMPHOCYTE # 1.1 TH/MM3 (1.0-4.8); MEAN CELL VOLUME 92.5 FL (80.0-100.0); MEAN CORPUSCULAR HEMOGLOBIN 31.1 PG (27.0-34.0); MEAN CORPUSCULAR HGB CONC 33.6 % (32.0-36.0); MONO % 9.1 % (0.0-8.0); NEUT % 74.2 % (16.0-70.0); PLATELET COUNT 223 TH/MM3 (150-450); RED BLOOD COUNT 3.96 MIL/MM3 (4.50-5.90); RED CELL DISTRIBUTION WIDTH 13.9 % (11.6-17.2); WHITE BLOOD COUNT 9.3 TH/MM3 (4.0-11.0)
[2017-09-04] MEDS: SODIUM CHLORIDE 0.9% FLUSH 10 ML FLUSH IV FLUSH SCH ×3 (09:00→21:00)
[2017-09-04] MEDS: ACETAMINOPHEN 325 MG TAB PO PRN ×2 (09:04→19:12)
[2017-09-04] MEDS: APIXABAN 5 MG TABLET PO SCH ×2 (09:05→21:49)
[2017-09-04] MEDS: OXYBUTYNIN CHLORIDE 5 MG TAB PO SCH ×2 (09:05→21:49)
[2017-09-04] MEDS: DOCUSATE SODIUM 50 MG/SENNA 8.6 MG TAB PO SCH ×2 (09:06→21:49)
[2017-09-04] MEDS: DEXTROAMPHETAMINE/AMPHETAMINE 20 MG TAB PO SCH ×2 (09:06→21:48)
[2017-09-04] MEDS: BACLOFEN 10 MG TAB PO SCH ×2 (09:06→21:49)
[2017-09-04] MEDS: PANTOPRAZOLE SODIUM 40 MG VIAL IV PUSH SCH (09:06)
[2017-09-04] MEDS: predniSONE 10 MG TAB PO SCH (09:06)
--- NOTE | 2017-09-04 10:57 | HHI.CCPN ---
Subjective Remarks/Hospital Course This is a 57-year-old male. Date of admission 08/31/2017. Past medical history includes MS, chronic prednisone use, bladder incontinence and chronic narcotic use.Mr. Thibodeaux presents with the [facility] episode of shortness of breath this morning while bending over to put on his socks. He is noted to have peripheral edema including his oromucosa and hands. Reports elevated blood pressure and tachycardia. Patient was placed on oxygen by neighbor with resolution of his symptoms. Denies any chest pain urinary or bowel symptoms. Denies any radiation or diaphoresis. Patient had a CT pulmonary angiogram at [place] revealed thrombus across the pulmonary bifurcation involving the bilateral upper and lower lobes of the lung. Heparin drip as well as written to be initiated at [place] but not started. Head CT was not done. Patient was transported to [facility] for further evaluation treatment. A central line has been placed and we'll start on alteplase at 2 mg an hour 6 hours per protocol. Started by heparin drip at 1 hour post conclusion Subjective: 09/01: Afebrile. The patient continues on heparin infusion status post alteplase infusion. Denies chest pain. O2 requirements decreased to nasal cannula 2 L/minute. Echo performed this morning results pending. 09/02: Patient's oxygen requirements decreased in the last 24 hours, O2 saturation 100% on 2 L/m. Nasal cannula discontinued this a.m., with inclusion of incentive spirometry every 4 hours added. Patient denies chest pain or dyspnea, continues to be on heparin infusion with plan transition to a PO anticoagulant. Family (daughter) has stated they do not want the patient to be transition to Coumadin therapy. The patient is being followed by Dr. Ledezma neurology who has been consulted for multiple sclerosis. Patient currently is on AntiCD 20 MAB therapy program with drug Ocrelizumab. He is scheduled to receive his fourth IV dosing in November 2017, and has concerns regarding the impact of his current condition with a massive pulmonary embolus and subsequent dosing of an anticoagulant. Hematology is consulted as well for possible genetic predisposition and prothrombotic studies to be performed as well as continued follow-up. Patient underwent echo yesterday that revealed an ejection fraction of 50-55% with a normal RV. Pharmacy has also been consulted regarding identification of contraindications to monoclonal antibody therapy and anticoagulant long-term therapy for patient's recent diagnosis of massive pulmonary embolus. Patient remains on strict bedrest at this time. Reconsulted: 09/03: Overnight the patient became confused, and combative. The patient received 3 mg of Ativan with 2 mg of morphine at 4:30 AM. The patient became more altered at that time. Neurology was notified, CT of the brain was performed negative. MRI currently pending. Eliquis an additional a.m. meds placed on hold, pending results. 09/04: Afebrile .Neurological studies negative yesterday. Sleep-wake cycle reviewed yesterday, a simple receive melatonin and Ambien last night for sleep. This a.m. patient alert and oriented x 3 return to baseline. Patient out of bed with PT for evaluation, tolerating diet. O2 via nasal cannula has been weaned off. Objective Vital Signs Date Time Temp Pulse Resp B/P (MAP) Pulse Ox O2 Delivery O2 Flow Rate FiO2 09/04/17 09:43 93 21 09/04/17 09:00 97 09/04/17 08:00 98.3 28 136/80 (98) 09/03/17 20:25 Nasal Cannula 3.00 Intake and Output 09/04/17 09/04/17 09/05/17 08:00 16:00 00:00 Intake Total 360 ml Output Total 850 ml Balance -490 ml Result Diagram: 09/04/17 0514 09/02/17 0350 Imaging Last Impressions Chest X-Ray 08/31/17 1140 Signed Impressions: Service Date/Time: Thursday, August 31, 2017 12:45 - CONCLUSION: Mild interstitial prominence identified. Raghavendra Hughes MD CT Angiography 08/31/17 1140 Signed Impressions: Service Date/Time: Thursday, August 31, 2017 12:23 - CONCLUSION: Large bilateral pulmonary emboli including saddle embolus. Vance Nunez MD Objective Remarks GENERAL: This is a 57-year-old male, resting in bed on nasal cannula currently in no acute distress, mildly confused SKIN: Warm and dry. Well perfused HEAD: Atraumatic. Normocephalic. EYES: Pupils equal and round. No scleral icterus. No injection or drainage. ENT: No nasal bleeding or discharge. Mucous membranes pink and moist. NECK: Trachea midline. No JVD. CARDIOVASCULAR: Tachycardia, RR. S1, S2. No S4. Without murmur RESPIRATORY: No significant accessory muscle use.B/L breath sounds clear to auscultation. Breath sounds equal bilaterally. GASTROINTESTINAL: Abdomen soft, non-tender, nondistended. Normoactive bowel sounds . MUSCULOSKELETAL: Extremities with trace bilateral lower extremity edema. No obvious deformities. NEUROLOGICAL: Awake and alert. No obvious cranial nerve deficits. Motor grossly within normal limits. 5/5 muscle strength in the arms and legs. Normal speech. Confusion alert to name, recognizes family, think she is in a medical office Date of Insertion: Aug 31, 2017 Date of Removal: Sep 02, 2017 Line: Central Venous Catheter Side: Right Location: Internal, Jugular A/P Assessment and Plan Neuro/Psych: Chronic narcotic use MS ADHD Altered mental status ICU delirium- resolved Baclofen 10 mg by mouth BID /muscle relaxants, anti-spasmodic Currently on [place] 5/325 one tablet every 4 hours. Pain 1-5. Morphine sulfate 2 mg IV every 2 hours. Pain 6-10 Patient is on [place] 7.5/325 one tablet every 4 hours when necessary pain at home (on hold) Continue prednisone 15 mg by mouth daily Immunosuppressant unknown type on hold Continue Adderall 20 mg BID Patient is on monoclonal antibody therapy/protocol Ocrevus (IV) scheduled dosing for November 2017, Dr. Ledezma patient's neurologist has been consulted, concern for contraindications to MAB therapy and anticoagulant therapy due to massive PE, per patient request for clarification of therapies Dr. Huerta following 09/03 noted to have altered mental status last night, received 3 mg of Ativan with 2 mg of morphine IV at approximately 4:30 AM, with escalation of confusion. 09/03-EEG obtained-preliminary negative, CT brain-no acute abnormality, MRI pending Report of patient's family, several episodes of confusion noted at home similar presentation, previously Maintain sleep hygiene Ambien PRN CV: Sinus tachycardia-resolved Elevated troponin - likely secondary to pulmonary embolism strain Currently normal saline at 84 cc/hour Currently not requiring vasopressors and/or antihypertensives 09/01 -2-D echocardiogram -EF 50-55 percent, RV normal, right ventricular systolic function may be mildly decreased ( poor visualization), trace MVR Troponins 0.64->0.40 downtrending Resp: Acute massive pulmonary embolism CT pulmonary angiogram revealed large thrombus across the pulmonary bifurcation involving right main lung, bilateral right upper middle lobe and left upper and lower lobes Nasal cannula to maintain saturations greater than equal to 90% Incentive spirometry while awake 08/31 Alteplase infusion see below at 10 mg an hour 6 hours with heparin drip at 500 units an hour. Initiated heparin drip for PE protocol 1 hour post alteplase infusion Heparin infusion continues with plan transition to PO anticoagulation. Family does not want patient to be transition to Coumadin. Pharmacy has been consulted , as well as Dr. Ledezma regarding monoclonal antibody therapy and any contraindications to long-term anticoagulation therapy. Plan for initiation of apixaban 10 mg twice a day 7 days to be followed by 5 mg twice a day 6 months with hematology follow-up. Apixiban on hold pending MRI Hematology consulted, prothrombotic studies ordered GI: Heart healthy diet Pantoprazole for GI prophylaxis Docusate sodium/senna for bowel regimen : Bladder spasm Continue oxybutynin 5 mg every 12 hours No indication for Kim catheter, condom catheter use Endo: Chronic prednisone use Sliding-scale insulin with Accu-Cheks to maintain euglycemia if indicated Continue home med prednisone dosing Renal: Monitor urine output Accurate I's and O's Heme: Leukocytosis Renal Doppler ultrasound bilateral lower extremities. Patient is relatively immobile to MS ID: Monitor for infection MSK: PT evaluate and treat Out of bed to chair-pending MRI results FEN: Replace electrolytes as clinically indicated Access - 08/31 Right IJ CVL (day 3)discontinued 09/02 Prophylaxis - GI - pantoprazole - DVT - SCDs/currently on alteplase/heparin drip. 09/02 Plan for transition to PO anticoagulation, apixaban with confirmation of no contraindications regarding current MS MAB ongoing therapy and optimization per discussion with pharmacist Marycarmen Garcia. 09/02 Will start apixaban 2 hours after discontinuation of heparin this evening and continue dosing 10 mg twice a day 7 days followed by 5 mg twice a day with continuation to be determined by hematology/or primary care physician post discharge Dispo: Discussed with patient's daughter as well as BREAD WRAPPER OPERATOR at bedside(Stephanie). All questions answered. Planned transfer to hospitalist, transfer to floor Level 2 Physician Serene Kellogg MD Sep 04, 2017 10:57
--- NOTE | 2017-09-04 12:09 | PD.ONC.PN ---
Subjective Subjective Remarks Afebrile overnight Pt had a much better night last night; no confusion Deniers chest pain or SOB No bleeding Objective Data Date Time Temp Pulse Resp B/P (MAP) Pulse Ox O2 Delivery O2 Flow Rate FiO2 09/04/17 09:43 93 21 09/04/17 09:00 97 09/04/17 08:00 98.3 95 28 136/80 (98) 95 09/04/17 08:00 95 09/04/17 07:00 84 09/04/17 04:00 87 09/04/17 04:00 87 20 145/79 (101) 99 09/04/17 00:00 98.5 98 18 132/63 (86) 97 09/04/17 00:00 98 09/03/17 20:25 98 Nasal Cannula 3.00 09/03/17 20:00 91 09/03/17 20:00 98.3 91 16 137/69 (91) 95 09/03/17 18:31 98 Nasal Cannula 3.00 09/03/17 16:00 91 14 97 09/03/17 16:00 91 09/03/17 16:00 91 09/03/17 14:00 100 09/03/17 12:09 95 09/03/17 12:09 95 35 140/78 (98) 99 09/04/17 09/04/17 09/04/17 07:00 15:00 23:00 Intake Total 360 ml Output Total 850 ml Balance -490 ml Result Diagram: 09/04/17 0514 09/02/17 0350 Laboratory Results Laboratory Tests Test 09/04/17 05:14 White Blood Count 9.3 TH/MM3 Red Blood Count 3.96 MIL/MM3 Hemoglobin 12.3 GM/DL Hematocrit 36.6 % Mean Corpuscular Volume 92.5 FL Mean Corpuscular Hemoglobin 31.1 PG Mean Corpuscular Hemoglobin Concent 33.6 % Red Cell Distribution Width 13.9 % Platelet Count 223 TH/MM3 Mean Platelet Volume 9.8 FL Neutrophils (%) (Auto) 74.2 % Lymphocytes (%) (Auto) 11.7 % Monocytes (%) (Auto) 9.1 % Eosinophils (%) (Auto) 4.3 % Basophils (%) (Auto) 0.7 % Neutrophils # (Auto) 6.9 TH/MM3 Lymphocytes # (Auto) 1.1 TH/MM3 Monocytes # (Auto) 0.8 TH/MM3 Eosinophils # (Auto) 0.4 TH/MM3 Basophils # (Auto) 0.1 TH/MM3 CBC Comment DIFF FINAL Differential Comment Administered Medications Medications (Trade) Dose Ordered Sig/Cyril Route PRN Reason Start Time Stop Time Status Last Admin Dose Admin Amphetamine/ Dextroamphetamine (Adderall) 20 mg BID PO 08/31/17 21:00 09/04/17 09:06 Oxybutynin Chloride (Ditropan) 5 mg Q12HR PO 08/31/17 21:00 09/04/17 09:05 Prednisone (Deltasone) 15 mg DAILY PO 09/01/17 09:00 09/04/17 09:06 Sodium Chloride 1,000 ml @ 84 mls/hr [id number] IV 08/31/17 13:15 09/03/17 01:23 Sodium Chloride (NS Flush) 2 ml BID IV FLUSH 08/31/17 21:00 09/04/17 09:07 Acetaminophen (Tylenol) 650 mg Q6H PRN PO PAIN 1-2 AND/OR FEVER >101F 08/31/17 13:15 09/04/17 09:04 Morphine Sulfate (Morphine Inj) 2 mg Q2H PRN IV PUSH PAIN SCALE 6 TO 10 08/31/17 13:15 09/03/17 04:28 Pantoprazole Sodium (Protonix Inj) 40 mg DAILY IV PUSH 09/01/17 09:00 09/04/17 09:06 Albuterol/ Ipratropium (Duoneb Neb) 1 ampule Q6HR NEB INH 08/31/17 16:00 09/04/17 09:39 Miscellaneous Information 1 Q361D XX 08/31/17 13:15 08/31/17 13:15 Chlorhexidine Gluconate (Chlorhexidine 2% Cloth) 3 pack Taper DAILY@04 TOP 09/01/17 04:00 08/28/18 03:59 09/02/17 04:00 Senna/Docusate Sodium (Cassandra-Colace) 1 tab BID PO 08/31/17 21:00 09/04/17 09:06 Sennosides (Senokot) 17.2 mg Q12H PRN PO Moderate constipation 08/31/17 13:15 09/03/17 17:35 Alteplase, Recombinant 10 mg/ Sodium Chloride 500 ml @ 100 mls/hr TITRATE PRN IV See Protocol Table 08/31/17 16:00 08/31/17 22:20 Sodium Chloride (NS Flush) DAILY IV FLUSH 09/01/17 09:00 09/02/17 09:34 Baclofen (Lioresal) 10 mg BID PO 08/31/17 21:00 09/04/17 09:06 Apixaban (Eliquis) 10 mg BID PO 09/02/17 21:00 09/04/17 09:05 Melatonin (Melatonin) 5 mg HS PRN PO INSOMNIA/MAY REPEAT X1 DOSE 09/03/17 19:15 09/03/17 20:24 Zolpidem Tartrate (Ambien) 10 mg HS PRN PO INSOMNIA 09/03/17 19:15 09/04/17 01:27 Objective Remarks GENERAL: Older male, resting in bed with visitors present in no obvious distress SKIN: Warm and dry. HEAD: Normocephalic. EYES: No injection or drainage. NECK: Supple, trachea midline. CARDIOVASCULAR: Regular rate and rhythm without murmurs. RESPIRATORY: Clear anteriorly. Breathing unlabored. GASTROINTESTINAL: Abdomen soft, non-tender, nondistended. EXTREMITIES: No cyanosis, or edema. MUSCULOSKELETAL: Adequate muscle tone. NEUROLOGICAL: Alert. Slow speech. Following commands. Assessment/Plan Problem List: (1) Pulmonary embolus ICD Codes: I26.99 - Other pulmonary embolism without acute cor pulmonale Status: Acute Plan: : OK for discharge from hematology standpoint. Monitor CBC. -- Status post TPA -- Hypercoagulable workup pending -- Ultrasound bilateral lower extremities showed no clot -- Plan for anticoagulation at least 1 year Assessment 57-year-old male with history of multiple sclerosis admitted for shortness of breath found to have saddle pulmonary embolus. Attending Statement The exam, history, and the medical decision-making described in the above note were completed with the assistance of the mid-level provider. I reviewed and agree with the findings presented. I attest that I had a [id number] encounter with the patient on the same day, and personally performed and documented my assessment and findings in the medical record. Patient is awake, alert and oriented times three. Slept well last night No more shortness breath Continue Eliquis. Okay to discharge Problem Qualifiers (1) Pulmonary embolus: Qualified Codes: I26.92 - Saddle embolus of pulmonary artery without acute cor pulmonale Shanika Renteria Sep 04, 2017 12:09 Do Camacho MD Sep 04, 2017 23:52
[2017-09-04] MEDS: SODIUM CHLOR 0.9% 1000 ML INJ 1,000 ML IV SCH (12:35)
--- NOTE | 2017-09-04 18:02 | HHI.PR ---
Subjective Remarks YO Male with Massive, PE,s/p TPA On Eliquis Denies sob, CP, or dizzyness Family at BS Weaned to RA Objective Vital Signs Vital Signs Date Time Temp Pulse Resp B/P (MAP) Pulse Ox O2 Delivery O2 Flow Rate FiO2 09/04/17 16:00 101 09/04/17 16:00 98.0 101 32 138/69 (92) 94 09/04/17 15:00 101 31 138/86 (103) 94 09/04/17 14:00 100 21 132/72 (92) 93 09/04/17 13:01 104 30 145/81 (102) 94 09/04/17 13:00 104 29 94 09/04/17 13:00 104 09/04/17 12:00 98.0 102 22 131/82 (98) 94 09/04/17 12:00 102 22 131/82 (98) 94 09/04/17 12:00 102 09/04/17 11:00 100 09/04/17 10:00 104 09/04/17 09:43 93 21 09/04/17 09:00 97 09/04/17 08:00 98.3 95 28 136/80 (98) 95 09/04/17 08:00 95 09/04/17 07:00 84 09/04/17 04:00 87 09/04/17 04:00 87 20 145/79 (101) 99 09/04/17 00:00 98.5 98 18 132/63 (86) 97 09/04/17 00:00 98 09/03/17 20:25 98 Nasal Cannula 3.00 09/03/17 20:00 91 09/03/17 20:00 98.3 91 16 137/69 (91) 95 09/03/17 18:31 98 Nasal Cannula 3.00 I/O 09/03/17 09/03/17 09/03/17 09/04/17 09/04/17 09/04/17 07:00 15:00 23:00 07:00 15:00 23:00 Intake Total 720 ml 930 ml 360 ml 350 ml Output Total 1780 ml 1600 ml 850 ml 1000 ml Balance -1060 ml -670 ml -490 ml -650 ml Intake Oral 720 ml 930 ml 360 ml 350 ml IV Total 0 ml Output Urine Total 1780 ml 1600 ml 850 ml 1000 ml # Bowel Movements 1 0 Result Diagram: 09/04/17 0514 09/02/17 0350 Objective Remarks GENERAL: WBWN male, NAD SKIN: Warm and dry. HEAD: Normocephalic. EYES: No scleral icterus. No injection or drainage. NECK: Supple, trachea midline. No JVD or lymphadenopathy. CARDIOVASCULAR: Regular rate and rhythm without murmurs, gallops, or rubs. RESPIRATORY: Breath sounds equal bilaterally. No accessory muscle use. GASTROINTESTINAL: Abdomen soft, non-tender, nondistended. MUSCULOSKELETAL: No cyanosis, or edema. BACK: Nontender without obvious deformity. No CVA tenderness. A/P Assessment and Plan Massive PE, s/p TPA MS Agitation, resolved PLAN: Cont Eliquis Stable on RA VISHAL pt and his at BS Wayne Jacob MD Sep 04, 2017 18:02
[2017-09-05 04:00] VITALS: BP 133/81; PULSE 93; RESP 20; TEMP 98.5; O2SAT 93
[2017-09-05] MEDS: CHLORHEXIDINE GLUCONATE 2 % 1 PACK (2 CLOTHS) TOP SCH ×2 (04:00→19:30)
[2017-09-05 05:20] VITALS: BP 146/80; PULSE 100; RESP 18; TEMP 97.3; O2SAT 94
[2017-09-05] MEDS ORDERED: PANT40TA3 PO (05:43)
[2017-09-05] MEDS ORDERED: MELA5 PO (05:43)
[2017-09-05] MEDS ORDERED: APIX5TAB PO (05:43)
--- NOTE | 2017-09-05 05:43 | HHI.DCPOC ---
Discharge Care Plan Diagnosis: (1) Pulmonary embolus Your Health Problems Are: Difficulty with ADL Exercise Tolerance Goals to Promote Your Health * To prevent worsening of your condition and complications * To maintain your health at the optimal level Directions to Meet Your Goals Take your medications as prescribed Follow your dietary instruction Follow activity as directed Keep your appointments as scheduled Take your immunizations and boosters as scheduled If your symptoms worsen call your PCP, if no PCP go to Urgent Care Center or Emergency Room Smoking is Dangerous to Your Health. Avoid second hand smoke Call the 24-hour hour crisis hotline for domestic abuse at Eldon Jones MD Sep 05, 2017 05:43
[2017-09-05 08:00] VITALS: BP 143/85; PULSE 101; RESP 20; TEMP 97.7; O2SAT 93
--- NOTE | 2017-09-05 08:26 | PD.ONC.PN ---
Subjective Subjective Remarks is at bedside. NO CP or SOB Objective Data Date Time Temp Pulse Resp B/P (MAP) Pulse Ox O2 Delivery O2 Flow Rate FiO2 09/05/17 05:20 97.3 100 18 146/80 (102) 94 09/04/17 23:35 98.9 108 18 146/73 (97) 94 09/04/17 22:04 93 09/04/17 21:54 Room Air 09/04/17 20:01 112 09/04/17 19:20 98.3 115 18 123/73 (90) 93 09/04/17 18:30 99.3 112 20 138/80 (99) 93 09/04/17 16:00 101 09/04/17 16:00 98.0 101 32 138/69 (92) 94 09/04/17 15:00 101 31 138/86 (103) 94 09/04/17 14:00 100 21 132/72 (92) 93 09/04/17 13:01 104 30 145/81 (102) 94 09/04/17 13:00 104 29 94 09/04/17 13:00 104 09/04/17 12:00 98.0 102 22 131/82 (98) 94 09/04/17 12:00 102 22 131/82 (98) 94 09/04/17 12:00 102 09/04/17 11:00 100 09/04/17 10:00 104 09/04/17 09:43 93 21 09/04/17 09:00 97 09/05/17 09/05/17 09/05/17 07:00 15:00 23:00 Intake Total 120 ml Output Total 450 ml Balance -330 ml Result Diagram: 09/04/17 0514 09/02/17 0350 Administered Medications Medications (Trade) Dose Ordered Sig/Cyril Route PRN Reason Start Time Stop Time Status Last Admin Dose Admin Amphetamine/ Dextroamphetamine (Adderall) 20 mg BID PO 08/31/17 21:00 09/04/17 21:48 Oxybutynin Chloride (Ditropan) 5 mg Q12HR PO 08/31/17 21:00 09/04/17 21:49 Prednisone (Deltasone) 15 mg DAILY PO 09/01/17 09:00 09/04/17 09:06 Sodium Chloride (NS Flush) 2 ml BID IV FLUSH 08/31/17 21:00 09/04/17 21:00 Acetaminophen (Tylenol) 650 mg Q6H PRN PO PAIN 1-2 AND/OR FEVER >101F 08/31/17 13:15 09/04/17 19:12 Morphine Sulfate (Morphine Inj) 2 mg Q2H PRN IV PUSH PAIN SCALE 6 TO 10 08/31/17 13:15 09/03/17 04:28 Albuterol Sulfate (Albuterol Neb) 2.5 mg Q2HR NEB PRN INH SOB/WHEEZING 08/31/17 13:15 09/04/17 16:36 Miscellaneous Information 1 Q361D XX 08/31/17 13:15 08/31/17 13:15 Chlorhexidine Gluconate (Chlorhexidine 2% Cloth) 3 pack Taper DAILY@04 TOP 09/01/17 04:00 08/28/18 03:59 09/02/17 04:00 Senna/Docusate Sodium (Cassandra-Colace) 1 tab BID PO 08/31/17 21:00 09/04/17 21:49 Sennosides (Senokot) 17.2 mg Q12H PRN PO Moderate constipation 08/31/17 13:15 09/03/17 17:35 Alteplase, Recombinant 10 mg/ Sodium Chloride 500 ml @ 100 mls/hr TITRATE PRN IV See Protocol Table 08/31/17 16:00 08/31/17 22:20 Sodium Chloride (NS Flush) DAILY IV FLUSH 09/01/17 09:00 09/02/17 09:34 Baclofen (Lioresal) 10 mg BID PO 08/31/17 21:00 09/04/17 21:49 Apixaban (Eliquis) 10 mg BID PO 09/02/17 21:00 09/10/17 01:00 09/04/17 21:49 Melatonin (Melatonin) 5 mg HS PRN PO INSOMNIA/MAY REPEAT X1 DOSE 09/03/17 19:15 09/03/17 20:24 Zolpidem Tartrate (Ambien) 10 mg HS PRN PO INSOMNIA 09/03/17 19:15 09/04/17 01:27 Objective Remarks GENERAL: Well-nourished, well-developed patient. SKIN: Warm and dry. HEAD: Normocephalic. EYES: No scleral icterus. No injection or drainage. NECK: Supple, trachea midline. No JVD or lymphadenopathy. LYMPHATIC: No adenopathy. CARDIOVASCULAR: Regular rate and rhythm without murmurs. RESPIRATORY: Breath sounds equal bilaterally. No accessory muscle use. GASTROINTESTINAL: Abdomen soft, non-tender, nondistended. EXTREMITIES: No cyanosis, or edema. MUSCULOSKELETAL: Adequate muscle tone. NEUROLOGICAL: No obvious focal deficit. Awake, alert, and oriented x3. PSYCHIATRIC: Appropriate mood and affect; insight and judgment normal. Assessment/Plan Problem List: (1) Pulmonary embolus ICD Codes: I26.99 - Other pulmonary embolism without acute cor pulmonale Status: Acute Plan: 09/05/17 Tolerating Eliquis very well. awaiting to go to [facility] per . Pt symptoms of PE have resolved. Clear to d/c D/W RN : OK for discharge from hematology standpoint. Monitor CBC. -- Status post TPA -- Hypercoagulable workup pending -- Ultrasound bilateral lower extremities showed no clot -- Plan for anticoagulation at least 1 year Assessment 57-year-old male with history of multiple sclerosis admitted for shortness of breath found to have saddle pulmonary embolus. Problem Qualifiers (1) Pulmonary embolus: Qualified Codes: I26.92 - Saddle embolus of pulmonary artery without acute cor pulmonale Do Camacho MD Sep 05, 2017 08:26
[2017-09-05] MEDS: BACLOFEN 10 MG TAB PO SCH ×2 (08:47→19:48)
[2017-09-05] MEDS: PANTOPRAZOLE SOD 40 MG DELAYED RELEASE TAB PO SCH (08:48)
[2017-09-05] MEDS: DOCUSATE SODIUM 50 MG/SENNA 8.6 MG TAB PO SCH ×2 (08:48→19:48)
[2017-09-05] MEDS: APIXABAN 5 MG TABLET PO SCH ×2 (08:49→19:48)
[2017-09-05] MEDS: OXYBUTYNIN CHLORIDE 5 MG TAB PO SCH ×2 (08:51→19:48)
[2017-09-05] MEDS: ACETAMINOPHEN 325 MG TAB PO PRN (08:52)
[2017-09-05] MEDS: DEXTROAMPHETAMINE/AMPHETAMINE 20 MG TAB PO SCH ×2 (08:52→19:48)
[2017-09-05] MEDS: predniSONE 10 MG TAB PO SCH (08:54)
[2017-09-05] MEDS: SODIUM CHLORIDE 0.9% FLUSH 10 ML FLUSH IV FLUSH SCH ×3 (09:00→19:47)
[2017-09-05 12:00] VITALS: BP 137/84; PULSE 106; RESP 20; TEMP 97.8; O2SAT 95
--- NOTE | 2017-09-05 13:17 | HHI.PR ---
Subjective Remarks Consulted by critical care medicine for transfer care medical management. Chart reviewed. F/u PE. Denies chest pain and shortness of breath. Tolerating room air. Seen with . Case discussed with daughter. Discussed with RN Objective Vitals Vital Signs Date Time Temp Pulse Resp B/P (MAP) Pulse Ox O2 Delivery O2 Flow Rate FiO2 09/05/17 12:00 97.8 106 20 137/84 (101) 95 09/05/17 08:00 97.7 101 20 143/85 (104) 93 09/05/17 05:20 97.3 100 18 146/80 (102) 94 09/04/17 23:35 98.9 108 18 146/73 (97) 94 09/04/17 22:04 93 09/04/17 21:54 Room Air 09/04/17 20:01 112 09/04/17 19:20 98.3 115 18 123/73 (90) 93 09/04/17 18:30 99.3 112 20 138/80 (99) 93 09/04/17 16:00 101 09/04/17 16:00 98.0 101 32 138/69 (92) 94 09/04/17 15:00 101 31 138/86 (103) 94 09/04/17 14:00 100 21 132/72 (92) 93 I/O 09/04/17 09/04/17 09/04/17 09/05/17 09/05/17 09/05/17 07:00 15:00 23:00 07:00 15:00 23:00 Intake Total 360 ml 350 ml 120 ml Output Total 850 ml 1050 ml 450 ml Balance -490 ml -700 ml -330 ml Intake Oral 360 ml 350 ml 120 ml IV Total 0 ml Output Urine Total 850 ml 1050 ml 450 ml # Bowel Movements 0 0 Result Diagram: 09/04/17 0514 09/02/17 0350 Imaging Last Impressions Head CT 09/03/17 0000 Signed Impressions: Service Date/Time: Sunday, September 03, 2017 04:48 - CONCLUSION: No acute abnormality demonstrated. Lamberto Martinez MD Brain MRI 09/03/17 0000 Signed Impressions: Service Date/Time: Sunday, September 03, 2017 11:11 - CONCLUSION: Multiple areas of demyelinization in the periventricular white matter in a pattern suggesting a previously demyelinating process. Today's exam is very similar to 2010. No acute enhancing lesions identified. Hugh Berg MD Abdomen/Pelvis CT 09/02/17 0000 Signed Impressions: Service Date/Time: Sunday, September 03, 2017 04:50 - CONCLUSION: 1. No evidence of malignancy or other acute abnormality within the abdomen or pelvis. 2. Simple, benign appearing right renal cyst. Lamberto Martinez MD Chest X-Ray 08/31/17 1516 Signed Impressions: Service Date/Time: Thursday, August 31, 2017 15:50 - CONCLUSION: New right internal jugular central venous catheter with tip in the superior vena cava. No acute cardiopulmonary disease or acute complication. Lamberto Martinez MD CT Angiography 08/31/17 1140 Signed Impressions: Service Date/Time: Thursday, August 31, 2017 12:23 - CONCLUSION: Large bilateral pulmonary emboli including saddle embolus. Vance Nunez MD Lower Extremity Ultrasound 08/31/17 0000 Signed Impressions: Service Date/Time: Thursday, August 31, 2017 16:37 - CONCLUSION: No venous thrombosis of either lower extremity. Lamberto Martinez MD Objective Remarks GENERAL: This is a 57-year-old male, resting in bed on Ra in no acute distress SKIN: Warm and dry. Well perfused CARDIOVASCULAR: RRR. S1, S2. No S4. Without murmur RESPIRATORY: No significant accessory muscle use.B/L breath sounds clear to auscultation. Breath sounds equal bilaterally. GASTROINTESTINAL: Abdomen soft, non-tender, nondistended. Normoactive bowel sounds . MUSCULOSKELETAL: Extremities with trace bilateral lower extremity edema. No obvious deformities. NEUROLOGICAL: Awake and alert. No obvious cranial nerve deficits. Motor grossly within normal limits. 5/5 muscle strength in the arms and legs. Normal speech. A/P Problem List: (1) Elevated troponin ICD Code: R74.8 - Abnormal levels of other serum enzymes (2) Leukocytosis ICD Code: D72.829 - Elevated white blood cell count, unspecified (3) Chronic narcotic use ICD Code: F11.90 - Opioid use, unspecified, uncomplicated (4) Bladder spasm ICD Code: N32.89 - Other specified disorders of bladder (5) On prednisone therapy ICD Code: Z79.52 - superintendent terminal (current) use of systemic steroids (6) Dyslipidemia ICD Code: E78.5 - Hyperlipidemia, unspecified (7) Multiple sclerosis ICD Code: G35 - Multiple sclerosis Status: Acute (8) Pulmonary embolus ICD Code: I26.99 - Other pulmonary embolism without acute cor pulmonale Status: Acute (9) Chest pain ICD Code: R07.9 - Chest pain, unspecified Status: Acute (10) ADHD ICD Code: F90.9 - Attention-deficit hyperactivity disorder, unspecified type Assessment and Plan Neuro/Psych: Chronic narcotic use MS ADHD Altered mental status/ICU delirium- resolved Baclofen 10 mg by mouth BID /muscle relaxants, anti-spasmodic Currently on [place] 5/325 one tablet every 4 hours. Pain 1-5. Morphine sulfate 2 mg IV every 2 hours. Pain 6-10 Patient is on [place] 7.5/325 one tablet every 4 hours when necessary pain at home (on hold) Continue prednisone 15 mg by mouth daily Immunosuppressant unknown type on hold Continue Adderall 20 mg BID Patient is on monoclonal antibody therapy/protocol Ocrevus (IV) scheduled dosing for November 2017, Dr. Ledezma patient's neurologist has been consulted, concern for contraindications to MAB therapy and anticoagulant therapy due to massive PE, per patient request for clarification of therapies Dr. Huerta following 09/03 noted to have altered mental status last night, received 3 mg of Ativan with 2 mg of morphine IV at approximately 4:30 AM, with escalation of confusion. 09/03-EEG obtained-preliminary negative, CT brain-no acute abnormality, MRI no significant change Report of patient's family, several episodes of confusion noted at home similar presentation, previously Maintain sleep hygiene Ambien PRN CV: Sinus tachycardia-resolved Elevated troponin - likely secondary to pulmonary embolism strain Discontinued normal saline at 84 cc/hour Currently not requiring vasopressors and/or antihypertensives 09/01 -2-D echocardiogram -EF 50-55 percent, RV normal, right ventricular systolic function may be mildly decreased ( poor visualization), trace MVR Troponins 0.64->0.40 downtrending Resp: Acute massive pulmonary embolism CT pulmonary angiogram revealed large thrombus across the pulmonary bifurcation involving right main lung, bilateral right upper middle lobe and left upper and lower lobes Nasal cannula to maintain saturations greater than equal to 90% Incentive spirometry while awake 08/31 Alteplase infusion see below at 10 mg an hour 6 hours with heparin drip at 500 units an hour. Initiated heparin drip for PE protocol 1 hour post alteplase infusion Heparin infusion continues with plan transition to PO anticoagulation. Family does not want patient to be transition to Coumadin. Pharmacy has been consulted , as well as Dr. Ledezma regarding monoclonal antibody therapy and any contraindications to long-term anticoagulation therapy. Plan for initiation of apixaban 10 mg twice a day 7 days to be followed by 5 mg twice a day 6 months with hematology follow-up. Hematology consulted, prothrombotic studies ordered follow-up results GI: Heart healthy diet Pantoprazole for GI prophylaxis Docusate sodium/senna for bowel regimen : Bladder spasm Continue oxybutynin 5 mg every 12 hours No indication for Kim catheter, condom catheter use Endo: Chronic prednisone use Sliding-scale insulin with Accu-Cheks to maintain euglycemia if indicated Continue home med prednisone dosing Renal: Monitor urine output Accurate I's and O's Heme: Leukocytosis Renal Doppler ultrasound bilateral lower extremities. Patient is relatively immobile to MS ID: Monitor for infection MSK: PT evaluate and treat Out of bed to chair FEN: Replace electrolytes as clinically indicated Access - 08/31 Right IJ CVL (day 3)discontinued 09/02 Prophylaxis - GI - pantoprazole - DVT - SCDs/PO anticoagulation, apixaban with confirmation of no contraindications regarding current MS MAB ongoing therapy and optimization per discussion with pharmacist Marycarmen Garcia. Discharge Planning Stable for discharge to rehabilitation Problem Qualifiers (1) Leukocytosis: Qualified Codes: D72.829 - Elevated white blood cell count, unspecified (2) Pulmonary embolus: Qualified Codes: I26.92 - Saddle embolus of pulmonary artery without acute cor pulmonale (3) Chest pain: Qualified Codes: R07.9 - Chest pain, unspecified (4) ADHD: Qualified Codes: F90.9 - Attention-deficit hyperactivity disorder, unspecified type Eldon Jones MD Sep 05, 2017 13:17
--- NOTE | 2017-09-05 13:19 | HHI.PR ---
Subjective Remarks YO Male with Massive, PE,s/p TPA On Eliquis Denies sob, CP, or dizzyness Family at BS Weaned to RA No new complaint Objective Vital Signs Vital Signs Date Time Temp Pulse Resp B/P (MAP) Pulse Ox O2 Delivery O2 Flow Rate FiO2 09/05/17 12:00 97.8 106 20 137/84 (101) 95 09/05/17 08:00 97.7 101 20 143/85 (104) 93 09/05/17 05:20 97.3 100 18 146/80 (102) 94 09/04/17 23:35 98.9 108 18 146/73 (97) 94 09/04/17 22:04 93 09/04/17 21:54 Room Air 09/04/17 20:01 112 09/04/17 19:20 98.3 115 18 123/73 (90) 93 09/04/17 18:30 99.3 112 20 138/80 (99) 93 09/04/17 16:00 101 09/04/17 16:00 98.0 101 32 138/69 (92) 94 09/04/17 15:00 101 31 138/86 (103) 94 09/04/17 14:00 100 21 132/72 (92) 93 I/O 09/04/17 09/04/17 09/04/17 09/05/17 09/05/17 09/05/17 07:00 15:00 23:00 07:00 15:00 23:00 Intake Total 360 ml 350 ml 120 ml Output Total 850 ml 1050 ml 450 ml Balance -490 ml -700 ml -330 ml Intake Oral 360 ml 350 ml 120 ml IV Total 0 ml Output Urine Total 850 ml 1050 ml 450 ml # Bowel Movements 0 0 Result Diagram: 09/04/17 0514 09/02/17 0350 Objective Remarks GENERAL: WBWN male, NAD SKIN: Warm and dry. HEAD: Normocephalic. EYES: No scleral icterus. No injection or drainage. NECK: Supple, trachea midline. No JVD or lymphadenopathy. CARDIOVASCULAR: Regular rate and rhythm without murmurs, gallops, or rubs. RESPIRATORY: Breath sounds equal bilaterally. No accessory muscle use. GASTROINTESTINAL: Abdomen soft, non-tender, nondistended. MUSCULOSKELETAL: No cyanosis, or edema. BACK: Nontender without obvious deformity. No CVA tenderness. A/P Assessment and Plan Massive PE, s/p TPA MS Agitation, resolved PLAN: Cont Eliquis Stable on RA DW pt and his at BS Wayne Jacob MD Sep 05, 2017 13:19
[2017-09-05 16:00] VITALS: BP 128/77; PULSE 99; RESP 20; TEMP 98.6; O2SAT 93
[2017-09-05 20:00] VITALS: BP 127/79; PULSE 102; PULSE 104; RESP 20; TEMP 98.2; O2SAT 93
[2017-09-06] VITALS: BP 141/75; PULSE 117; RESP 20; TEMP 98.6; O2SAT 94
[2017-09-06 04:00] VITALS: BP 140/89; PULSE 107; RESP 20; TEMP 98.1; O2SAT 95
[2017-09-06 07:09] LABS: HEMATOCRIT 40.8 % (39.0-51.0); MEAN CELL VOLUME 92.4 FL (80.0-100.0); MEAN CORPUSCULAR HEMOGLOBIN 30.5 PG (27.0-34.0); PLATELET COUNT 277 TH/MM3 (150-450); RED BLOOD COUNT 4.41 MIL/MM3 (4.50-5.90); RED CELL DISTRIBUTION WIDTH 13.6 % (11.6-17.2); REVIEW FLAG FINAL; WHITE BLOOD COUNT 12.2 TH/MM3 (4.0-11.0)
[2017-09-06 08:00] VITALS: BP 141/78; PULSE 97; RESP 18; TEMP 98.2; O2SAT 98
[2017-09-06] MEDS: SODIUM CHLORIDE 0.9% FLUSH 10 ML FLUSH IV FLUSH SCH ×2 (09:00)
[2017-09-06] MEDS: DOCUSATE SODIUM 50 MG/SENNA 8.6 MG TAB PO SCH (09:11)
[2017-09-06] MEDS: DEXTROAMPHETAMINE/AMPHETAMINE 20 MG TAB PO SCH (09:11)
[2017-09-06] MEDS: BACLOFEN 10 MG TAB PO SCH (09:11)
[2017-09-06] MEDS: PANTOPRAZOLE SOD 40 MG DELAYED RELEASE TAB PO SCH (09:11)
[2017-09-06] MEDS: predniSONE 10 MG TAB PO SCH (09:11)
[2017-09-06] MEDS: OXYBUTYNIN CHLORIDE 5 MG TAB PO SCH (09:12)
[2017-09-06] MEDS: APIXABAN 5 MG TABLET PO SCH (09:12)
--- NOTE | 2017-09-06 10:54 | PD.ONC.PN ---
Subjective Subjective Remarks Afebrile Pt sitting up in bed doing exercises in the bed Denies CP, SOB Family requesting that pt's daughter accompany him to outpatient appt as he is Chinese speaking only Objective Data Date Time Temp Pulse Resp B/P (MAP) Pulse Ox O2 Delivery O2 Flow Rate FiO2 09/06/17 04:00 98.1 107 20 140/89 (106) 95 09/06/17 00:00 98.6 117 20 141/75 (97) 94 09/05/17 20:00 Room Air 09/05/17 20:00 102 09/05/17 20:00 98.2 104 20 127/79 (95) 93 09/05/17 16:00 98.6 99 20 128/77 (94) 93 09/05/17 12:00 97.8 106 20 137/84 (101) 95 09/06/17 09/06/17 09/06/17 07:00 15:00 23:00 Intake Total 450 ml Output Total 350 ml Balance 100 ml Result Diagram: 09/06/17 0627 09/02/17 0350 Laboratory Results Laboratory Tests Test 09/06/17 06:27 White Blood Count 12.2 TH/MM3 Red Blood Count 4.41 MIL/MM3 Hemoglobin 13.5 GM/DL Hematocrit 40.8 % Mean Corpuscular Volume 92.4 FL Mean Corpuscular Hemoglobin 30.5 PG Mean Corpuscular Hemoglobin Concent 33.0 % Red Cell Distribution Width 13.6 % Platelet Count 277 TH/MM3 Mean Platelet Volume 9.6 FL Administered Medications Medications (Trade) Dose Ordered Sig/Cyril Route PRN Reason Start Time Stop Time Status Last Admin Dose Admin Amphetamine/ Dextroamphetamine (Adderall) 20 mg BID PO 08/31/17 21:00 09/06/17 09:11 Oxybutynin Chloride (Ditropan) 5 mg Q12HR PO 08/31/17 21:00 09/06/17 09:12 Prednisone (Deltasone) 15 mg DAILY PO 09/01/17 09:00 09/06/17 09:11 Sodium Chloride (NS Flush) 2 ml BID IV FLUSH 08/31/17 21:00 09/06/17 09:00 Acetaminophen (Tylenol) 650 mg Q6H PRN PO PAIN 1-2 AND/OR FEVER >101F 08/31/17 13:15 09/05/17 08:52 Morphine Sulfate (Morphine Inj) 2 mg Q2H PRN IV PUSH PAIN SCALE 6 TO 10 08/31/17 13:15 09/03/17 04:28 Ondansetron HCl (Zofran Inj) 4 mg Q6H PRN IV PUSH NAUSEA OR VOMITING 08/31/17 13:15 09/05/17 08:54 Albuterol Sulfate (Albuterol Neb) 2.5 mg Q2HR NEB PRN INH SOB/WHEEZING 08/31/17 13:15 09/04/17 16:36 Miscellaneous Information 1 Q361D XX 08/31/17 13:15 08/31/17 13:15 Chlorhexidine Gluconate (Chlorhexidine 2% Cloth) Taper DAILY@04 TOP 09/01/17 04:00 08/28/18 03:59 09/02/17 04:00 Senna/Docusate Sodium (Cassandra-Colace) 1 tab BID PO 08/31/17 21:00 09/06/17 09:11 Sennosides (Senokot) 17.2 mg Q12H PRN PO Moderate constipation 08/31/17 13:15 09/03/17 17:35 Alteplase, Recombinant 10 mg/ Sodium Chloride 500 ml @ 100 mls/hr TITRATE PRN IV See Protocol Table 08/31/17 16:00 08/31/17 22:20 Sodium Chloride (NS Flush) DAILY IV FLUSH 09/01/17 09:00 09/02/17 09:34 Baclofen (Lioresal) 10 mg BID PO 08/31/17 21:00 09/06/17 09:11 Apixaban (Eliquis) 10 mg BID PO 09/02/17 21:00 09/10/17 01:00 09/06/17 09:12 Melatonin (Melatonin) 5 mg HS PRN PO INSOMNIA/MAY REPEAT X1 DOSE 09/03/17 19:15 09/03/17 20:24 Zolpidem Tartrate (Ambien) 10 mg HS PRN PO INSOMNIA 09/03/17 19:15 09/04/17 01:27 Pantoprazole Sodium (Protonix) 40 mg DAILY PO 09/05/17 09:00 09/06/17 09:11 Objective Remarks GENERAL: Older male, resting in bed in no acute distress. SKIN: Warm and dry. HEAD: Normocephalic. EYES: No injection or drainage. NECK: Supple, trachea midline. CARDIOVASCULAR: Regular rate and rhythm without murmurs. RESPIRATORY: Clear anteriorly. Breathing unlabored. GASTROINTESTINAL: Abdomen soft, non-tender, nondistended. EXTREMITIES: No cyanosis, or edema. MUSCULOSKELETAL: Adequate muscle tone. NEUROLOGICAL: Awake and alert. Normal speech. Following commands. Assessment/Plan Problem List: (1) Pulmonary embolus ICD Codes: I26.99 - Other pulmonary embolism without acute cor pulmonale Status: Acute Plan: 09/05/17 Blood counts stable on Eliquis. Discussed with new pt referrals to contact pt's daughter for appt as pt is Chinese speaking only. Clear for discharge from hematology standpoint. Sign off for now. -- Status post TPA -- Hypercoagulable workup pending -- Ultrasound bilateral lower extremities showed no clot -- Plan for anticoagulation at least 1 year Assessment 57-year-old male with history of multiple sclerosis admitted for shortness of breath found to have saddle pulmonary embolus. Attending Statement The exam, history, and the medical decision-making described in the above note were completed with the assistance of the mid-level provider. I reviewed and agree with the findings presented. I attest that I had a [id number] encounter with the patient on the same day, and personally performed and documented my assessment and findings in the medical record. no new c/o Continue Eliquis. fu as outpt sign off available prn Problem Qualifiers (1) Pulmonary embolus: Qualified Codes: I26.92 - Saddle embolus of pulmonary artery without acute cor pulmonale Shanika Renteria Sep 06, 2017 10:54 Do Camacho MD Sep 06, 2017 11:00
[2017-09-06 12:00] VITALS: BP 128/73; PULSE 103; RESP 18; TEMP 98.2; O2SAT 97
[2017-09-06] MEDS ORDERED: METO25TA3 PO (12:39)
--- NOTE | 2017-09-06 12:39 | HHI.DS ---
Discharge Summary Admission Date Aug 31, 2017 at 13:20 Discharge Date: Sep 06, 2017 Admitting Diagnosis Pulmonary Embolus (1) Elevated troponin ICD Code: R74.8 - Abnormal levels of other serum enzymes Diagnosis: Principal Status: Acute (2) Leukocytosis ICD Code: D72.829 - Elevated white blood cell count, unspecified Diagnosis: Principal (3) Chronic narcotic use ICD Code: F11.90 - Opioid use, unspecified, uncomplicated Diagnosis: Principal Status: Chronic (4) Bladder spasm ICD Code: N32.89 - Other specified disorders of bladder Diagnosis: Secondary Status: Chronic (5) On prednisone therapy ICD Code: Z79.52 - jail (current) use of systemic steroids Diagnosis: Secondary Status: Chronic (6) Dyslipidemia ICD Code: E78.5 - Hyperlipidemia, unspecified Diagnosis: Secondary Status: Chronic (7) Multiple sclerosis ICD Code: G35 - Multiple sclerosis Diagnosis: Principal Status: Chronic (8) Pulmonary embolus ICD Code: I26.99 - Other pulmonary embolism without acute cor pulmonale Diagnosis: Principal Status: Acute (9) Chest pain ICD Code: R07.9 - Chest pain, unspecified Diagnosis: Principal Status: Acute (10) ADHD ICD Code: F90.9 - Attention-deficit hyperactivity disorder, unspecified type Diagnosis: Secondary Procedures alteplase infusion Brief History - From Admission This is a 57-year-old male. Date of admission 08/31/2017. Past medical history includes MS, chronic prednisone use, bladder incontinence and chronic narcotic use.Mr. Thibodeaux presents with the [facility] episode of shortness of breath this morning while bending over to put on his socks. He is noted to have peripheral edema including his oromucosa and hands. Reports elevated blood pressure and tachycardia. Patient was placed on oxygen by neighbor with resolution of his symptoms. Denies any chest pain urinary or bowel symptoms. Denies any radiation or diaphoresis. Patient had a CT pulmonary angiogram at [place] revealed thrombus across the pulmonary bifurcation involving the bilateral upper and lower lobes of the lung. Heparin drip as well as written to be initiated at [place] but not started. Head CT was not done. Patient was transported to [facility] for further evaluation treatment. A central line has been placed and we'll start on alteplase at 2 mg an hour 6 hours per protocol. Started by heparin drip at 1 hour post conclusion CBC/BMP: 09/06/17 0627 09/02/17 0350 Significant Findings Laboratory Tests Test 09/04/17 05:14 09/06/17 06:27 Red Blood Count 3.96 MIL/MM3 (4.50-5.90) 4.41 MIL/MM3 (4.50-5.90) Hemoglobin 12.3 GM/DL (13.0-17.0) Hematocrit 36.6 % (39.0-51.0) Neutrophils (%) (Auto) 74.2 % (16.0-70.0) Monocytes (%) (Auto) 9.1 % (0.0-8.0) Eosinophils (%) (Auto) 4.3 % (0.0-4.0) White Blood Count 12.2 TH/MM3 (4.0-11.0) Imaging Last Impressions Head CT 09/03/17 0000 Signed Impressions: Service Date/Time: Sunday, September 03, 2017 04:48 - CONCLUSION: No acute abnormality demonstrated. Lamberto Martinez MD Brain MRI 09/03/17 0000 Signed Impressions: Service Date/Time: Sunday, September 03, 2017 11:11 - CONCLUSION: Multiple areas of demyelinization in the periventricular white matter in a pattern suggesting a previously demyelinating process. Today's exam is very similar to 2010. No acute enhancing lesions identified. Hugh Berg MD Abdomen/Pelvis CT 09/02/17 0000 Signed Impressions: Service Date/Time: Sunday, September 03, 2017 04:50 - CONCLUSION: 1. No evidence of malignancy or other acute abnormality within the abdomen or pelvis. 2. Simple, benign appearing right renal cyst. Lamberto Martinez MD Chest X-Ray 08/31/17 1516 Signed Impressions: Service Date/Time: Thursday, August 31, 2017 15:50 - CONCLUSION: New right internal jugular central venous catheter with tip in the superior vena cava. No acute cardiopulmonary disease or acute complication. aLmberto Martinez MD CT Angiography 08/31/17 1140 Signed Impressions: Service Date/Time: Thursday, August 31, 2017 12:23 - CONCLUSION: Large bilateral pulmonary emboli including saddle embolus. Vance Nunez MD Lower Extremity Ultrasound 08/31/17 0000 Signed Impressions: Service Date/Time: Thursday, August 31, 2017 16:37 - CONCLUSION: No venous thrombosis of either lower extremity. Lamberto Martinez MD PE at Discharge GENERAL: This is a 57-year-old male, resting in bed on Ra in no acute distress SKIN: Warm and dry. Well perfused CARDIOVASCULAR: mildly tachy, RR. S1, S2. No S4. Without murmur RESPIRATORY: No significant accessory muscle use.B/L breath sounds clear to auscultation. Breath sounds equal bilaterally. GASTROINTESTINAL: Abdomen soft, non-tender, nondistended. Normoactive bowel sounds . MUSCULOSKELETAL: Extremities with trace bilateral lower extremity edema. No obvious deformities. NEUROLOGICAL: Awake and alert. No obvious cranial nerve deficits. Motor grossly within normal limits. 5/5 muscle strength in the arms and legs. Normal speech. Hospital Course Chronic narcotic use MS ADHD Altered mental status/ICU delirium- resolved Baclofen 10 mg by mouth BID /muscle relaxants, anti-spasmodic Currently on [place] 5/325 one tablet every 4 hours. Pain 1-5. Morphine sulfate 2 mg IV every 2 hours. Pain 6-10 Patient is on [place] 7.5/325 one tablet every 4 hours when necessary pain at home (on hold) Continue prednisone 15 mg by mouth daily Immunosuppressant unknown type on hold Continue Adderall 20 mg BID Patient is on monoclonal antibody therapy/protocol Ocrevus (IV) scheduled dosing for November 2017, Dr. Ledezma patient's neurologist has been consulted, concern for contraindications to MAB therapy and anticoagulant therapy due to massive PE, per patient request for clarification of therapies Dr. Huerta following 09/03 noted to have altered mental status last night, received 3 mg of Ativan with 2 mg of morphine IV at approximately 4:30 AM, with escalation of confusion. 09/03-EEG obtained-preliminary negative, CT brain-no acute abnormality, MRI no significant change Report of patient's family, several episodes of confusion noted at home similar presentation, previously Maintain sleep hygiene Ambien PRN CV: Sinus tachycardia-persistent 2/2 PE Elevated troponin - likely secondary to pulmonary embolism strain Discontinued normal saline at 84 cc/hour Currently not requiring vasopressors and/or antihypertensives 09/01 -2-D echocardiogram -EF 50-55 percent, RV normal, right ventricular systolic function may be mildly decreased ( poor visualization), trace MVR Troponins 0.64->0.40 downtrending Start low dose BB Resp: Acute massive pulmonary embolism CT pulmonary angiogram revealed large thrombus across the pulmonary bifurcation involving right main lung, bilateral right upper middle lobe and left upper and lower lobes Nasal cannula to maintain saturations greater than equal to 90% Incentive spirometry while awake 08/31 Alteplase infusion see below at 10 mg an hour 6 hours with heparin drip at 500 units an hour. Initiated heparin drip for PE protocol 1 hour post alteplase infusion Heparin infusion continues with plan transition to PO anticoagulation. Family does not want patient to be transition to Coumadin. Pharmacy has been consulted , as well as Dr. Ledezma regarding monoclonal antibody therapy and any contraindications to long-term anticoagulation therapy. Plan for initiation of apixaban 10 mg twice a day 7 days to be followed by 5 mg twice a day 6 months with hematology follow-up. Hematology consulted, prothrombotic studies ordered follow-up results GI: Heart healthy diet Pantoprazole for GI prophylaxis Docusate sodium/senna for bowel regimen : Bladder spasm Continue oxybutynin 5 mg every 12 hours No indication for Kim catheter, condom catheter use Endo: Chronic prednisone use Sliding-scale insulin with Accu-Cheks to maintain euglycemia if indicated Continue home med prednisone dosing Renal: Monitor urine output Accurate I's and O's Heme: Leukocytosis Renal Doppler ultrasound bilateral lower extremities. Patient is relatively immobile to MS ID: Monitor for infection MSK: PT evaluate and treat Out of bed to chair FEN: Replace electrolytes as clinically indicated Access - 08/31 Right IJ CVL (day 3)discontinued 09/02 Prophylaxis - GI - pantoprazole - DVT - SCDs/PO anticoagulation, apixaban with confirmation of no contraindications regarding current MS MAB ongoing therapy and optimization per discussion with pharmacist Marycarmen Garcia. Pt Condition on Discharge: Stable Discharge Disposition: Rehab Inpatient Discharge Time: > 30 minutes Discharge Instructions DIET: Follow Instructions for: Heart Healthy Diet Activities you can perform: Regular-No Restrictions Activities to Avoid: Driving Follow up Referrals: Neurology - 1 Week Oncology/Hematology - 1 Week PCP Follow-up - 1 Week Pulmonology - 1 Week New Medications: Apixaban (Eliquis) 5 Mg Tab 5 MG PO BID for Prevent Blood Clot, #60 TAB start 09/10/17 Apixaban (Eliquis) 5 Mg Tab 10 MG PO BID for Prevent Blood Clot, #9 TAB stop after last evening dose on 09/09/17 Melatonin (Melatonin) 5 Mg Tab 5 MG PO HS PRN for INSOMNIA/FEBRUARY REPEAT X1 DOSE, #7 TAB Metoprolol Tartrate (Metoprolol Tartrate) 25 Mg Tab 12.5 MG PO Q12HR for Regulate Heart Beat, #60 TAB Pantoprazole (Pantoprazole) 40 Mg Tab 40 MG PO DAILY for Manage Heartburn, #30 TAB Continued Medications: Amphetamine-Dextroamphetamine (Adderall) 20 Mg Tab 20 MG PO BID for Hyperactivity Control, #60 TAB 0 Refills Avoid late evening doses. Space doses at least 4 to 6 hours if more than once/day dosing. Baclofen (Baclofen) 10 Mg Tab 10 MG PO BID for MUSCLE SPASM, TAB 0 Refills Hydrocodone-Acetaminophen (Hydrocodone-Acetaminophen) 7.5-325 mg Tab 1 TAB PO Q6H PRN for PAIN, TAB 0 Refills Oxybutynin (Ditropan) 5 Mg Tab 5 MG PO Q12HR for Urinary Symptom Managemen, #60 TAB 0 Refills Prednisone (Prednisone) 10 Mg Tab 15 MG PO DAILY, TAB 0 Refills [Immunosurpression] () 1 UNIT IV 2 X YEARLY Eldon Jones MD Sep 06, 2017 12:39
[2017-09-06] MEDS ORDERED: METOPROLOL TARTRATE 25 MG TAB PO SCH (12:45)
--- NOTE | 2017-09-06 14:37 | HHI.PR ---
Subjective Remarks YO Male with Massive, PE,s/p TPA On Eliquis Denies sob, CP, or dizzyness Weaned to RA No new complaint Objective Vital Signs Vital Signs Date Time Temp Pulse Resp B/P (MAP) Pulse Ox O2 Delivery O2 Flow Rate FiO2 09/06/17 12:00 98.2 103 18 128/73 (91) 97 09/06/17 08:00 98.2 97 18 141/78 (99) 98 09/06/17 04:00 98.1 107 20 140/89 (106) 95 09/06/17 00:00 98.6 117 20 141/75 (97) 94 09/05/17 20:00 Room Air 09/05/17 20:00 102 09/05/17 20:00 98.2 104 20 127/79 (95) 93 09/05/17 16:00 98.6 99 20 128/77 (94) 93 I/O 09/05/17 09/05/17 09/05/17 09/06/17 09/06/17 09/06/17 07:00 15:00 23:00 07:00 15:00 23:00 Intake Total 120 ml 240 ml 450 ml Output Total 450 ml 350 ml 350 ml Balance -330 ml -110 ml 100 ml Intake Oral 120 ml 240 ml 450 ml Output Urine Total 450 ml 350 ml 350 ml # Voids 2 # Bowel Movements 0 1 Result Diagram: 09/06/17 0627 09/02/17 0350 Objective Remarks GENERAL: WBWN male, NAD SKIN: Warm and dry. HEAD: Normocephalic. EYES: No scleral icterus. No injection or drainage. NECK: Supple, trachea midline. No JVD or lymphadenopathy. CARDIOVASCULAR: Regular rate and rhythm without murmurs, gallops, or rubs. RESPIRATORY: Breath sounds equal bilaterally. No accessory muscle use. GASTROINTESTINAL: Abdomen soft, non-tender, nondistended. MUSCULOSKELETAL: No cyanosis, or edema. BACK: Nontender without obvious deformity. No CVA tenderness. A/P Assessment and Plan Massive PE, s/p TPA MS Agitation, resolved PLAN: Cont Eliquis Stable on RA DC Plans for home on Eliquis Wayne Jacob MD Sep 06, 2017 14:37
[2017-09-08 23:51] LABS: THROMBIN TIME FOR LA ND sec (13-19)
[2017-09-10] MEDS ORDERED: APIXABAN 5 MG TABLET PO SCH (09:00)
[2017-09-10 11:52] LABS: PHOSPHATIDYLSERINE AB IGA LESS THAN 20.0 U/mL (< 20.0); PHOSPHATIDYLSERINE AB IGM ND U/mL (())
== END 2017-09-06 14:30 | DRG 176 ==
LOC: PHED 10:56 → PHEDA 13:20 → HIME 14:25 → N04A 09-04 18:22
PROVIDERS: ADMIT Internal Medicine; ATTEND Internal Medicine
PROC: 05HM33Z Insertion of Infusion Device into Right Internal Jugular Vein, Percutaneous Approach (ICD-10-PCS; principal; 2017-08-31)
PROC: 3E04317 Introduction of Other Thrombolytic into Central Vein, Percutaneous Approach (ICD-10-PCS; 2017-08-31)
DX: I26.92 Saddle embolus of pulmonary artery without acute cor pulmonale (principal); F05 Delirium due to known physiological condition; G35 Multiple sclerosis; N32.89 Other specified disorders of bladder; E78.5 Hyperlipidemia, unspecified; F90.9 Attention-deficit hyperactivity disorder, unspecified type; R47.1 Dysarthria and anarthria; R00.0 Tachycardia, unspecified; K59.00 Constipation, unspecified; D72.829 Elevated white blood cell count, unspecified; R03.0 Elevated blood-pressure reading, without diagnosis of hypertension; R23.0 Cyanosis; Z79.891 Long term (current) use of opiate analgesic; Z79.52 Long term (current) use of systemic steroids
CPT/HCPCS: 36556; 36600; 70450; 70553; 71010; 71275; 74177; 76937; 80048; 80053; 81001; 81240; 81241; 81291; 82550; 82805; 82948; 83090; 83605; 83735; 83880; 84100; 84484; 85025; 85027; 85240; 85300; 85303; 85306; 85307; 85379; 85384; 85598; 85610; 85613; 85730; 86146; 86147; 86148; 87641; 93005; 93308; 93970; 94150; 94640; 95819; A9579; C9113; J1644; J2060; J2270; J2405; J2997; J7030; J7040; J7512; J7613; Q9963; Q9967